=== PATIENT | male | born 1980 | race Hispanic/Latino ===

== ENCOUNTER 2018-11-29 17:35 | Emergency (ER) | payer OTHER, MEDICAID, SELFPAY ==
[2018-11-29 18:05] VITALS: BP 134/77; PULSE 95; RESP 14; TEMP 36.6; O2SAT 100; BMI 24.3
--- NOTE | 2018-11-29 19:11 | ED_ITS ---
HPI - Epistaxis General Chief complaint: Nasal Problem Stated complaint: bloody noses x7 days ?b/p med. Time Seen by Provider: 11/29/18 19:10 Source: patient Mode of arrival: ambulatory Limitations: no limitations History of Present Illness HPI Narrative: patient is a 38-year-old male who presents with left-sided epistaxis he says had multiple is every day for the last week. He is currently not bleeding. He is not on any aspirin or any anticoagulation medication. He previously had intracranial hemorrhage. His is worried he may be bleeding from his head. Denies any trauma or recent injury. He is taking blood pressure medication he says his blood pressure has been high last few days. But currently it is not high. MD complaint: epistaxis Location: left nostril Onset (ago): day(s) (7) Duration: now resolved Related Data Home Medications Medication Instructions Recorded Confirmed lisinopril 10 mg PO QDAY #0 01/02/13 Previous Rx's Medication Instructions Recorded amlodipine [Norvasc] 10 mg PO QDAY #30 tab 07/11/17 lisinopril 40 mg PO QDAY #30 tab 07/11/17 oseltamivir [Tamiflu] 75 mg PO BID 5 Days #0 cap 07/11/17 Allergies Allergy/AdvReac Type Severity Reaction Status Date / Time No Known Drug Allergies Allergy Verified 11/29/18 18:04 Review of Systems Review of Systems ROS Unobtainable: All systems reviewed & are unremarkable except as noted in HPI and below Constitutional Denies chills, Denies fever(s), Denies lethargy and Denies weakness Eyes Denies change in vision, Denies eye discharge, Denies irritation and Denies loss of vision ENT Ears, Nose, Mouth, and Throat: Reports as per HPI and Reports epistaxis Cardiovascular Denies chest pain, Denies irregular heart rhythm, Denies lightheadedness, Denies palpitations, Denies dyspnea, Denies dyspnea on exertion and Denies orthopnea Respiratory Denies cough, Denies dyspnea, Denies dyspnea on exertion and Denies wheezing Gastrointestinal Gastrointestinal: Denies abdominal pain, Denies change in bowel habits, Denies diarrhea, Denies nausea and Denies vomiting Genitourinary Denies hematuria, Denies flank pain, Denies urinary incontinence and Denies urinary urgency Musculoskeletal Denies back pain, Denies muscle weakness, Denies numbness and Denies tingling Integumentary/Breasts Denies pruritus, Denies erythema, Denies rash and Denies wounds Neurologic Denies loss of vision, Denies numbness, Denies tingling and Denies weakness Endocrine Denies palpitations Allergic/Immunologic Denies wheezing PFSH Social History Smoking Status: Former smoker Social History Smoking Status: Former smoker Comment: intracranial hemorrhage-- now resolved Exam Initial Vital Signs Initial Vital Signs: Vital Signs Temperature 97.8 F 11/29/18 18:05 Pulse Rate 95 H 11/29/18 18:05 Respiratory Rate 14 11/29/18 18:05 Blood Pressure 134/77 11/29/18 18:05 Pulse Oximetry 100 11/29/18 18:05 GENERAL: Well-appearing, well-nourished and in no acute distress. HEENT: Head atraumatic,EOMI, pupils reactive, NOSE: no source of bleeding identified no active bleeding now CARDIOVASCULAR: Regular rate and rhythm without murmurs, rubs or gallops. RESPIRATORY: Breath sounds equal bilaterally, no wheezes rales or rhonchi. ABDOMEN: Soft, nontender. Normoactive bowel sounds all 4 quadrants. No guarding or rebound. EXTREMITIES: Normal range of motion, no clubbing or edema. Neurovascularly intact NEUROLOGICAL: Alert and oriented x4.Normal gait and speech. SKIN: Warm, dry, no laceration, no petechiae, no rashes or lesions. Course Vital Signs - 8 hr 11/29/18 18:05 11/29/18 19:29 Temperature 97.8 F Pulse Rate 95 H 90 Respiratory Rate 14 16 Blood Pressure 134/77 133/87 Pulse Oximetry 100 99 Discharge Plan Departure Patient Disposition: Home Clinical Impression: Epistaxis Discharge Date/Time: 11/29/18 19:31 Interventions: ED Discharge Assessment Last Done: 11/29/18 19:29 Instructions: DI for Nosebleed Activity Restrictions/Additional Instructions: *You have been diagnosed with nose bleed *What to do: you need to keep blood pressure under control. Elevated blood pressure can make nose bleeds worse. You may need further intervention by ENT. If he should have a nose bleed clamp applied pressure tilt head forward. If persistent bleeding for more than 45 min use Afrin 1-2 squirts and then apply more pressure. If still bleeding after that return to ED. *Continue to take medications as directed *Follow up with your primary care provider in 2-3 days *Return to ER if you should have Persistent nosebleed any new, worsening or concerning symptoms Prescriptions: No Action lisinopril 10 MG tablet 10 mg PO QDAY Qty: 0 RF: 0 oseltamivir [Tamiflu] 75 MG capsule 75 mg PO BID 5 Days Qty: 0 RF: 0 lisinopril 40 MG tablet 40 mg PO QDAY Qty: 30 RF: 0 amlodipine [Norvasc] 10 MG tablet 10 mg PO QDAY Qty: 30 RF: 0 Referrals: [facility] [Outside] Jorden Young MD [Physician] -
[2018-11-29 19:29] VITALS: BP 133/87; PULSE 90; RESP 16; O2SAT 99
== END 2018-11-29 19:31 | disposition home or self-care (01) ==
PROVIDERS: Emergency Provider Emergency Medicine
DX: R04.0 Epistaxis (principal)
CPT/HCPCS: 99282

== ENCOUNTER → 2019-05-14 14:34 | Outpatient (CLI) | payer OTHER, MEDICAID, SELFPAY ==
[2019-05-14 15:13] LABS: Influenza A - CEPHEID Flu A NEGATIVE (NEGATIVE); Influenza B - CEPHEID Flu B NEGATIVE (NEGATIVE)
== END ==
PROVIDERS: Visit Provider Nurse Practitioner Family
DX: R68.89 Other general symptoms and signs (principal)
CPT/HCPCS: 87502

== ENCOUNTER 2019-05-22 16:52 | Emergency (ER) | payer OTHER, MEDICAID, SELFPAY ==
[2019-05-22 17:13] VITALS: BP 172/94; PULSE 98; RESP 18; TEMP 36.2; O2SAT 98; BMI 24.3
[2019-05-22 18:22] VITALS: BP 168/112; PULSE 100; RESP 16; O2SAT 98
[2019-05-22] MEDS: cephALEXin 250 MG CAPSULE 500 MG PO (19:10)
[2019-05-22] MEDS: TRIMETH/SULFA 160/800 (DS) TABLET 1 TAB PO (19:10)
[2019-05-22 19:30] VITALS: BP 163/93; PULSE 88; RESP 16; O2SAT 99
--- NOTE | 2019-05-22 21:12 | ED.SKABFB ---
HPI - Skin/Abscess/Foreign Bdy <KISHA Syed-BC - Last Filed: 05/22/19 21:17> General Chief complaint: Skin/Abscess/Foreign Body Stated complaint: thinks spider bite left shoulder Time Seen by Provider: 05/22/19 18:17 Source: patient and family Mode of arrival: Family Vehicle Limitations: no limitations History of Present Illness HPI narrative: The patient is a 38-year-old male nonsmoker with history of hypertension who presents with a chief complaint of a spider bite in his left shoulder. He states it started draining prior to arrival. He has not taken anything for it. He denies any history of diabetes or IV drug use. He denies any fevers nausea vomiting or diarrhea. He denies any previous history of abscesses. Related Data Home Medications Medication Instructions Recorded Confirmed lisinopril 10 mg PO QDAY #0 13 05/14/19 Previous Rx's Medication Instructions Recorded amlodipine [Norvasc] 10 mg PO QDAY #30 tab 07/11/17 lisinopril 40 mg PO QDAY #30 tab 07/11/17 oseltamivir [Tamiflu] 75 mg PO BID 5 Days #0 cap 07/11/17 cephalexin 500 mg PO QID #39 cap 05/22/19 sulfamethoxazole-trimethoprim 1 tab PO BID #14 tab 05/22/19 [Bactrim DS] Allergies Allergy/AdvReac Type Severity Reaction Status Date / Time No Known Drug Allergies Allergy Verified 05/22/19 17:22 Review of Systems <KEVAN SyedP- - Last Filed: 05/22/19 21:17> Review of Systems Narrative: GENERAL: Denies chills, fatigue, malaise, fever, sweats. HEENT: Denies sinus pain, ear pain, sore throat, difficulty swallowing, dizziness. RESPIRATORY: Denies dyspnea, cough, wheezing, hemoptysis, sputum. CARDIOVASCULAR: Denies chest pain, palpitations, orthopnea, edema, GASTROINTESTINAL: Denies nausea, vomiting, abdominal pain, diarrhea, constipation, melena. : Denies dysuria, frequency, incontinence, hematuria, urinary retention. MUSCULOSKELETAL: denies weakness, joint pain, or bony pain SKIN: See HPI NEUROLOGIC: Denies weakness, headache, numbness, change in speech, confusion, seizures, incoordination. PSYCHIATRIC: No concerning psychosocial issues. 12 point review of systems is negative except for those stated above Patient History <SUMANTH Syed - Last Filed: 05/22/19 21:17> Medical History Hemorrhagic stroke (Acute) Surgical History No pertinent past surgical history (Acute) Social History Smoking Status: Never smoker alcohol intake: current substance use type: marijuana Smoking Status: Never smoker alcohol intake frequency: 3 or more drinks per day Substance Use Type: marijuana Exam <SUMANTH Syed - Last Filed: 05/22/19 21:17> Narrative Exam Narrative: GENERAL: This is a well-nourished, well-developed patient, no acute distress HEAD: Atraumatic. Normocephalic. No temporal or scalp tenderness. EYES: Pupils equal round and reactive. Extraocular motions intact. No scleral icterus. No injection or drainage. ENT: Nose without bleeding, purulent drainage or septal hematoma. Throat without erythema, tonsillar hypertrophy or exudate. Uvula midline. Airway patent. NECK: Trachea midline. No JVD or lymphadenopathy. Supple, nontender, no meningeal signs. CARDIOVASCULAR: Regular rate and rhythm without murmurs, gallops, or rubs. RESPIRATORY: Clear to auscultation. Breath sounds equal bilaterally. No wheezes, rales, or rhonchi. GASTROINTESTINAL: Abdomen soft, non-tender, nondistended. No hepato-splenomegaly, or palpable masses. No guarding. EXTREMITIES: No clubbing, cyanosis, or edema. No joint tenderness, effusion, or edema noted. BACK: Nontender without deformity or crepitance. No flank tenderness. NEURO: AOx3. SKIN: 3 x 3 cm abscess noted a posterior left scapula. Actively draining purulent discharge. Wound culture taken. Overlying erythema isolated to abscess itself. Not extending. Initial Vital Signs Initial Vital Signs: Vital Signs Temperature 97.2 F L 05/22/19 17:13 Pulse Rate 98 H 05/22/19 17:13 Respiratory Rate 18 05/22/19 17:13 Blood Pressure 172/94 H 05/22/19 17:13 Pulse Oximetry 98 05/22/19 17:13 <Kailey Melendez DO - Last Filed: 05/23/19 06:08> Initial Vital Signs Initial Vital Signs: Vital Signs Temperature 97.2 F L 05/22/19 17:13 Pulse Rate 98 H 05/22/19 17:13 Respiratory Rate 18 05/22/19 17:13 Blood Pressure 172/94 H 05/22/19 17:13 Pulse Oximetry 98 05/22/19 17:13 Course <SUMANTH Syed - Last Filed: 05/22/19 21:17> Orders Ordered: Discontinued Medications Cephalexin HCl (Keflex) 500 mg PO NOW ONE Stop: 05/22/19 18:51 Last Admin: 05/22/19 19:10 Dose: 500 mg [facility] Trimethoprim/Sulfamethoxazole (Bactrim Ds) 1 tab PO NOW ONE Stop: 05/22/19 18:51 Last Admin: 05/22/19 19:10 Dose: 1 tab Documented by: ROLLY Vital Signs Vital signs: Vital Signs - 8 hr 05/22/19 17:13 05/22/19 18:22 05/22/19 19:30 Temperature 97.2 F L Pulse Rate 98 H 100 H 88 Respiratory Rate 18 16 16 Blood Pressure 172/94 H Blood Pressure [Left Arm] 168/112 H 163/93 H Pulse Oximetry 98 98 99 <Kailey Melendez DO - Last Filed: 05/23/19 06:08> Orders Ordered: Discontinued Medications Cephalexin HCl (Keflex) 500 mg PO NOW ONE Stop: 05/22/19 18:51 Last Admin: 05/22/19 19:10 Dose: 500 mg Documented by: [facility] Trimethoprim/Sulfamethoxazole (Bactrim Ds) 1 tab PO NOW ONE Stop: 05/22/19 18:51 Last Admin: 05/22/19 19:10 Dose: 1 tab Documented by: SILVERTO Vital Signs Vital signs: Vital Signs - 8 hr 05/22/19 17:13 05/22/19 18:22 05/22/19 19:30 Temperature 97.2 F L Pulse Rate 98 H 100 H 88 Respiratory Rate 18 16 16 Blood Pressure 172/94 H Blood Pressure [Left Arm] 168/112 H 163/93 H Pulse Oximetry 98 98 99 MDM - Skin/Abscess/Foreign Bdy <Kailey Mitchell, [employer] OPERATOR-BC - Last Filed: 05/22/19 21:17> [facility] Narrative Medical decision making narrative: The patient is a 38-year-old male who presents with a chief complaint of an abscess. He has no signs of systemic infection, afebrile etcetera. His abscess is actively draining upon arrival to the emergency department, I applied pressure to help facilitate further drainage. Wound culture was obtained in triage. She is cleansed with Hibiclens. Encouraged at length PCP follow-up given contact information [facility] resource agent. I did start him on Keflex and Bactrim. First doses tolerated in the emergency department. Patient and have no questions or concerns upon discharge and state understanding of return precautions as well as follow-up care. Discharge Plan Departure Patient Disposition: Home Clinical Impression: Abscess of skin or subcutaneous tissue Qualifiers: Site of cutaneous abscess: trunk Site of cutaneous abscess of trunk: back Qualified Code(s): L02.212 - Cutaneous abscess of back [any part, except buttock] Discharge Date/Time: 05/22/19 19:52 Instructions: DI for Skin Abscess Activity Restrictions/Additional Instructions: Thank you for trusting me with your care today I sent two antibiotics to [facility] in [place] Please take it with probiotic or yogurt Please monitor for signs of systemic illness such as fever, inability keep down fluids Please use warm moist compresses several times a day to help facilitate continued drainage We have a wound culture pending at this time. It will result in 2-3 days and if we have to change antibiotics we will call you Prescriptions: New cephalexin 500 mg capsule 500 mg PO QID Qty: 39 RF: 0 sulfamethoxazole-trimethoprim [Bactrim DS] 800-160 mg tablet 1 tab PO BID Qty: 14 RF: 0 No Action lisinopril 10 MG tablet 10 mg PO QDAY Qty: 0 RF: 0 oseltamivir [Tamiflu] 75 MG capsule 75 mg PO BID 5 Days Qty: 0 RF: 0 lisinopril 40 MG tablet 40 mg PO QDAY Qty: 30 RF: 0 amlodipine [Norvasc] 10 MG tablet 10 mg PO QDAY Qty: 30 RF: 0 Referrals: [facility] [Outside]
== END 2019-05-22 19:52 | disposition home or self-care (01) ==
PROVIDERS: Emergency Provider Nurse Practitioner Family
DX: L02.212 Cutaneous abscess of back [any part, except buttock and flank] (principal)
CPT/HCPCS: 87070; 87075; 87077; 87147; 87186; 87205; 99281; 99283

== ENCOUNTER → 2019-08-01 11:27 | Outpatient (CLI) | payer OTHER, MEDICAID, SELFPAY ==
[2019-08-01 12:07] LABS: Influenza A - CEPHEID Flu A NEGATIVE (NEGATIVE); Influenza B - CEPHEID Flu B NEGATIVE (NEGATIVE)
== END ==
PROVIDERS: PCP Family Medicine; Visit Provider Physician Assistant
DX: R50.9 Fever, unspecified (principal); R52 Pain, unspecified; R53.83 Other fatigue
CPT/HCPCS: 87502

== ENCOUNTER 2019-08-24 07:03 | Emergency (ER) | payer OTHER, MEDICAID, SELFPAY ==
[2019-08-24 07:47] VITALS: BP 157/91; PULSE 93; RESP 16; O2SAT 98
--- NOTE | 2019-08-24 08:12 | ED_ITS ---
HPI - Nausea/Vomiting/Diarrhea General Chief complaint: Nausea/Vomiting/Diarrhea Stated complaint: nausea,vomiting,diarrhea Time Seen by Provider: 08/24/19 07:03 Source: patient Mode of arrival: Ambulatory Limitations: no limitations History of Present Illness HPI Narrative: 39-year-old male nonsmoker with history of hypertension presents with another patient with similar symptoms which include nausea, vomiting and diarrhea for the past few days. He denies any fever, runny nose, sore throat, cough or shortness of breath. He denies recent travel or exposure to persons with known or suspected COVID-19. He denies any recent antibiotics, exposure to bad food but does have contact with ill persons. He is not dizzy nor weak or lightheaded. He developed crampy abdominal pain which pills until he has a bowel movement at which point symptoms improve MD complaint: nausea, vomiting and diarrhea Onset (ago): day(s) Description of Vomiting: food contents Description of Diarrhea: watery Associated Abdominal Pain: Yes Location of pain: diffuse Radiation: diffuse Severity: moderate Quality: cramping Pain Consistency: intermittent and now resolved Relieving factors: bowel movement Exacerbating factors: none Context: sick contacts Associated symptoms: nausea/vomiting Related Data Home Medications Medication Instructions Recorded Confirmed lisinopril 10 mg tablet 10 mg PO BID #0 tab 08/01/19 08/01/19 Previous Rx's Medication Instructions Recorded amlodipine 5 mg tablet 5 mg PO BID #180 tab 05/31/19 hyoscyamine sulfate 0.125 mg PO BID-QID PRN #20 tab 08/24/19 ondansetron 4 mg PO TID-QID PRN #10 tab 08/24/19 Allergies Allergy/AdvReac Type Severity Reaction Status Date / Time No Known Drug Allergies Allergy Verified 08/01/19 11:20 Review of Systems Constitutional Constitutional: Denies chills, Denies fatigue, Denies fever(s), Denies frequent falls, Denies lethargy and Denies weakness Eyes Eyes: Denies change in vision, Denies eye discharge, Denies irritation and Denies loss of vision ENT Ears, Nose, Mouth, and Throat: Denies change in voice, Denies dizziness, Denies neck pain, Denies sore throat and Denies throat swelling Cardiovascular Cardiovascular: Denies chest pain, Denies irregular heart rhythm, Denies lightheadedness, Denies palpitations, Denies dyspnea, Denies dyspnea on exertion and Denies orthopnea Respiratory Respiratory: Denies cough, Denies dyspnea, Denies dyspnea on exertion and Denies wheezing Gastrointestinal Gastrointestinal: Denies abdominal pain, Denies change in bowel habits, Denies diarrhea, Reports nausea and Reports vomiting Genitourinary Genitourinary: Denies hematuria, Denies flank pain, Denies urinary incontinence and Denies urinary urgency Musculoskeletal Musculoskeletal: Denies back pain, Denies muscle weakness, Denies neck pain, Denies numbness and Denies tingling Integumentary/Breasts Skin/Breast: Denies pruritus, Denies erythema, Denies rash and Denies wounds Neurologic Neurologic: Denies behavioral changes, Denies confusion, Denies dizziness, Denies frequent falls, Denies loss of vision, Denies numbness, Denies tingling and Denies weakness Psychiatric Psychiatric: Denies anxiety, Denies behavioral changes, Denies confusion, Denies depression, Denies homicidal ideation and Denies suicidal ideation Endocrine Endocrine: Denies fatigue, Denies flushing and Denies palpitations Hematologic/Lymphatic Hematologic/Lymphatic: Denies easy bruising Allergic/Immunologic Allergic/Immunologic: Denies urticaria, Denies throat swelling and Denies wheezing Patient History Medical History Eczema (Chronic) Hemorrhagic stroke (Acute ~2012) Hypertension (Chronic) Infertility (Acute) Migraines (Chronic) Viral syndrome (Acute) Surgical History History of surgery (Resolved ~2012) No pertinent past surgical history (Acute) Family History Father Hypertension Mother Hypertension Brother Hypertension Sister Hypertension Grandfather Hypertension Social History Smoking Status: Never smoker second hand exposure: Yes alcohol intake: current (40oz biweekly. ) substance use type: marijuana Smoking Status: Never smoker alcohol intake frequency: 3 or more drinks per day Substance Use Type: marijuana Exam Narrative Exam Narrative: GENERAL: [39] year old patient appears stated age. Well- nourished, well-developed patient, in mild distress. HEAD: Atraumatic. Normocephalic. EYES: Pupils equal round and reactive. Extraocular motions intact. No scleral icterus. No injection or drainage. ENT: Moist mucous membranes Nose without bleeding, purulent drainage. Throat without erythema, tonsillar hypertrophy or exudate. Airway patent. NECK: Trachea midline. Non tender CARDIOVASCULAR: Regular rate and rhythm without murmurs, gallops, or rubs. RESPIRATORY: Clear to auscultation. Breath sounds equal bilaterally. No wheezes, rales, or rhonchi. GASTROINTESTINAL: Abdomen soft, non-tender, nondistended. EXTREMITIES: No edema or joint tenderness. BACK: Nontender without deformity or crepitance. No flank tenderness. NEURO: AOx3. SKIN: No rash or erythema of visible areas, good skin turgor Initial Vital Signs Initial Vital Signs: Vital Signs Pulse Rate 93 H 08/24/19 07:47 Respiratory Rate 16 08/24/19 07:47 Blood Pressure 157/91 H 08/24/19 07:47 Pulse Oximetry 98 08/24/19 07:47 Course Vital Signs Vital signs: Vital Signs - 8 hr 08/24/19 07:47 Pulse Rate 93 H Respiratory Rate 16 Blood Pressure 157/91 H Pulse Oximetry 98 MDM - Nausea/Vomiting/Diarrhea Lab Data Labs: Urine Dip Bedside Urine Glucose 100 mg/dl Bedside Urine Bilirubin + 1 Bedside Urine Ketone - Negative Urine Specific [place] 1.020 Bedside Urine Occult Blood - Negative Bedside Urine pH 6.0 Bedside Urine Protein + 30 Bedside Urine Urobilinogen +/- 1mg Bedside Urine Nitrite - Negative Bedside Urine Leukocytes - Negative Esterase MDM Narrative Medical decision making narrative: Patient presents with nausea, vomiting and diarrhea. He has a very reassuring physical exam and vital signs. Urine shows appropriate specific gravity and no evidence of ketones. He is not dizzy nor weak or lightheaded. We discussed the utility of IV for labs and blood draw but sure the opinion that is unlikely to change the course. He has had return precautions given and questions answered to his apparent satisfaction. Discharge Plan Departure Patient Disposition: Home Clinical Impression: Vomiting and diarrhea Discharge Date/Time: 08/24/19 08:31 Instructions: Diarrhea, DI for Vomiting -- Adult Activity Restrictions/Additional Instructions: 1. Drink plenty of fluids with frequent small sips. 2. For the next 24 hours a clear liquid diet is advised. After that please employ a brat diet which would include bananas, rice, apples, toast. 3. Please take medications as directed. Sent to [facility] in [place] 4. Please follow-up with your doctor in the next 1-2 days. Call the office for an appointment. 5. Please return to the emergency Department for any worsening or persistent symptoms, such as increasing pain or fever. Prescriptions: New hyoscyamine sulfate 0.125 mg tablet 0.125 mg PO BID-QID PRN (Reason: dyspepsia) Qty: 20 RF: 0 ondansetron 4 mg tablet,disintegrating 4 mg PO TID-QID PRN (Reason: nausea and vomiting) Qty: 10 RF: 0 No Action lisinopril 10 mg tablet 10 mg PO BID Qty: 0 RF: 0 amlodipine 5 mg tablet 5 mg PO BID Qty: 180 RF: 3 Referrals: [facility] [Outside] Stand Alone Forms: Work Release Note
== END 2019-08-24 08:31 | disposition home or self-care (01) ==
PROVIDERS: Emergency Provider Emergency Medicine
DX: R11.2 Nausea with vomiting, unspecified (principal); R19.7 Diarrhea, unspecified; I10 Essential (primary) hypertension
CPT/HCPCS: 81003; 99281; 99282

== ENCOUNTER 2020-02-12 08:16 | Observation (INO) | payer OTHER, MEDICAID, SELFPAY ==
[2020-02-12] VITALS (10 sets, daily range): BP systolic 129–186; BP diastolic 77–89; PULSE 52–81; RESP 16–18; TEMP 36.3–37.1; O2SAT 98–100; BMI 27.3
--- NOTE | 2020-02-12 08:37 | DI.CT.S_ITS ---
PROCEDURE: CT CHEST ABD PEL W CON INDICATIONS: Trauma/injury/pain right side TECHNIQUE: After the administration of intravenous contrast, 5 mm thick sections acquired from the lung apices to the symphysis. 2.5 mm thick coronal and sagittal reformats were acquired. Additional 7 mm thick coronal maximum intensity projection (MIP) reformats acquired through the lungs. Optional 10-minute delayed imaging may be performed from the kidneys to the bladder. For radiation dose reduction, the following was used: automated exposure control, adjustment of mA and/or kV according to patient size. COMPARISON: [facility], CT, CT UE RT WO CON, 02/12/2020, 9:18. FINDINGS: Image quality: Excellent. CHEST: Lungs: No pulmonary contusions or lacerations. No acute airspace opacities. No pneumothorax or hemothorax. Central and peripheral airways appear patent and normal in caliber. Mediastinum: No mediastinal hematomas. Heart size is normal. No pericardial effusion. Thoracic aorta and pulmonary arteries demonstrate normal size and enhancement. No mediastinal or hilar adenopathy. Esophagus is normal in caliber. No hiatal hernia. Chest wall: A mildly displaced right coracoid fracture is seen. No rib fractures. No subcutaneous emphysema. No axillary or supraclavicular adenopathy. Thyroid gland demonstrates no significant abnormality. ABDOMEN: Solid organs: Liver is normal in size and enhancement, without lacerations. Gallbladder demonstrates no significant abnormality. Biliary system is non-dilated. Pancreas enhances normally, without transection. Spleen is normal in size and enhancement, without lacerations. Incidental note is made of an accessory splenule along the hilum of the primary spleen. No adrenal hematomas. Both kidneys enhance normally, without hydronephrosis or lacerations. Peritoneum and bowel: No free fluid or air. Unenhanced bowel loops demonstrate normal wall thickness and caliber. Colonic diverticulosis is seen, without findings of active diverticulitis. A normal appendix is incidentally noted. Nodes and vessels: No retroperitoneal or mesenteric adenopathy. Aorta and inferior vena cava are normal in size and enhancement. Miscellaneous: No ventral hernias. PELVIS: Genitourinary: Moderate circumferential bladder wall thickening is seen. Miscellaneous: No inguinal hernias or adenopathy. Bones: Pelvic ring and hip joints appear intact. No vertebral compression fractures. Mild levoconvex scoliotic curvature is noted. IMPRESSION: There is a mildly displaced right coracoid fracture seen. No additional significant posttraumatic abnormality is seen on these images. Moderate bladder wall thickening is seen. Please correlate with bladder outlet obstruction versus cystitis. Incidental note is made of: Levoconvex scoliotic curvature Accessory splenule Normal appendix Diverticulosis, without active diverticulitis Dictated by: Yovani Wiggins M.D. on 02/12/2020 at 8:49 Approved by: Yovani Wiggins M.D. on 02/12/2020 at 8:53
--- NOTE | 2020-02-12 08:38 | DI.CT.S_ITS ---
PROCEDURE: CT UE RT WO CON INDICATIONS: pain/injury TECHNIQUE: Noncontrast 3 mm axial sections acquired of the right humerus , with coronal and sagittal reformats. COMPARISON: [facility], CT, CT CHEST ABD PEL W CON, 02/12/2020, 9:23. FINDINGS: Image quality: Excellent. Bones: There is a mildly displaced fracture seen of the right coracoid, as on series 2 image 67 and on series 5, image 128. There is a mildly displaced comminuted fracture of the mid shaft of the right humerus. No clavicle fracture is seen. No displaced rib fractures are seen on this study. No glenohumeral dislocation. Soft tissues: Associated soft tissue swelling is seen. No pneumothorax is seen. IMPRESSION: Mildly displaced, comminuted fracture of the mid shaft of the humerus. There is a mildly displaced coracoid fracture also seen. No glenohumeral dislocation is seen. Dictated by: Yovani Wiggins M.D. on 02/12/2020 at 8:44 Approved by: Yovani Wiggins M.D. on 02/12/2020 at 8:48
--- NOTE | 2020-02-12 08:38 | DI.RAD.S_ITS ---
PROCEDURE: XR HUMERUS RT 2V INDICATIONS: trauma/pain TECHNIQUE: 2 views of the humerus were acquired. COMPARISON: [facility], CT, CT CHEST ABD PEL W CON, 02/12/2020, 9:23. [facility], CT, CT UE RT WO CON, 02/12/2020, 9:18. FINDINGS: Bones: There is a mildly displaced and mildly angulated fracture of the midshaft of the right humerus, with comminution. Soft tissues: No suspicious soft tissue calcifications. IMPRESSION: Comminuted fracture of the midshaft of the right humerus. Dictated by: Yovani Wiggins M.D. on 02/12/2020 at 8:54 Approved by: Yovani Wiggins M.D. on 02/12/2020 at 8:55
--- NOTE | 2020-02-12 08:58 | ED_ITS ---
HPI - Recheck/Abnormal Lab/Rx General Chief Complaint: Recheck/Abnormal Lab/Rx Stated Complaint: bruising/cast rt arm Time Seen by Provider: 02/12/20 08:37 Source: patient and family Mode of arrival: Ambulatory Limitations: no limitations History of Present Illness HPI narrative: Patient here with family. Here for right arm pain and chest pain on the right side. Seen Friday this week at outside hospital for broken arm and bruised ribs. Patient states that tree fell on his arm and chest. Seen at [facility] [place]. Tried calling the orthopedic office he was given but no answer this week. Increase pain. Increased swelling to the arm. And bruising. However no no no numbness tingling or weakness. Records faxed to us. Patient placed in Velcro splint for support and sling. Denies any fever chills. No trouble breathing. Denies any head injury or neck injury or pain from accident. Related Data Previous Rx's Medication Instructions Recorded lisinopril 10 mg tablet 10 mg PO BID #180 tab 11/17/19 amlodipine 10 mg tablet 5 mg PO BID #90 tab 12/01/19 Allergies Allergy/AdvReac Type Severity Reaction Status Date / Time No Known Drug Allergies Allergy Verified 11/17/19 11:27 Review of Systems Review of Systems Narrative: GENERAL: Denies chills, fatigue, malaise, fever, sweats. HEENT: Denies sinus pain, ear pain, sore throat, difficulty swallowing, dizziness. RESPIRATORY: Denies dyspnea, cough, wheezing, hemoptysis, sputum. CARDIOVASCULAR: Denies chest pain, palpitations, orthopnea, edema, GASTROINTESTINAL: Denies nausea, vomiting, abdominal pain, diarrhea, constipation, melena. : Denies dysuria, frequency, incontinence, hematuria, urinary retention. MUSCULOSKELETAL: Complains of bony and muscle pain. SKIN: Denies rash, skin lesions, or other NEUROLOGIC: Denies weakness, headache, numbness, change in speech, confusion, seizures, incoordination. PSYCHIATRIC: No concerning psychosocial issues. ROS Unobtainable: All systems reviewed & are unremarkable except as noted in HPI and below Patient History Medical History Eczema (Chronic) Hemorrhagic stroke (Acute ~2012) Hypertension (Chronic) Infertility (Acute) Migraines (Chronic) Viral syndrome (Acute) Surgical History History of surgery (Resolved ~2012) No pertinent past surgical history (Acute) Family History Father Hypertension Mother Hypertension Brother Hypertension Sister Hypertension Grandfather Hypertension Social History household members: spouse Smoking Status: Never smoker second hand exposure: Yes alcohol intake: current substance use type: marijuana Smoking Status: Never smoker alcohol intake frequency: 3 or more drinks per day Substance Use Type: marijuana Exam Narrative Exam Narrative: GENERAL: patient appears stated age. Well-nourished, well- developed patient, in no distress, not toxic HEAD: Atraumatic. Normocephalic. EYES: Pupils equal round and reactive. Extraocular motions intact. No scleral icterus. No injection or drainage. ENT: Nose without bleeding, purulent drainage. Throat without erythema, tonsillar hypertrophy or exudate. Airway patent. NECK: Trachea midline. Non tender CARDIOVASCULAR: Regular rate and rhythm without murmurs, gallops, or rubs. Chest wall there is right anterior lower rib bruising. Diffuse tenderness of the right-sided rib cage wall posterior as well as anterior. No crepitus. No flail. RESPIRATORY: Clear to auscultation. Breath sounds equal bilaterally. No wheezes, rales, or rhonchi. Speaks full sentences GASTROINTESTINAL: Abdomen soft, non-tender, nondistended. EXTREMITIES: Examination right upper extremity, brace and sleeves removed, right upper extremity is warm soft, pink. There is some ecchymosis distal to mid humerus. Nontender elbow. Nontender shoulder wrist and hand. Strong ammonium nitrate crystallizer in radial pulse with brisk cap refills. Light touch intact to thumb and fingers. Upper arm and forearm are soft. No induration. No pain out of proportion to exam. Again, not out of proportion to exam. At this time no signs of compartment syndrome. There is mid humeral tenderness with crepitus. Instability with movement of this area. No tenting of the skin BACK: Nontender without deformity or crepitance. No flank tenderness. NEURO: AOx4. SKIN: No rash or erythema of visible areas PSYCH: Not anxious, is cooperative Initial Vital Signs Initial Vital Signs: Vital Signs Temperature 98.7 F 02/12/20 08:31 Pulse Rate 71 02/12/20 08:31 Respiratory Rate 18 02/12/20 08:31 Blood Pressure 136/77 02/12/20 08:31 Pulse Oximetry 98 02/12/20 08:31 Course Course Course Narrative: Pain meds at home not controlling pain. Significant break in the right arm. Decision to Admit Date: 02/12/20 Decision to Admit time: 10:57 Orders Ordered: ED Orders 02/12/20 08:37 CT chest abd pel w con Stat 02/12/20 08:38 CT UE RT wo con Stat XR humerus RT 2V Stat 02/12/20 09:06 Complete Blood Count AUTO DIFF Stat Comprehensive Metabolic Panel Stat 02/12/20 09:17 COVID19 -ED/INPAT/OR/L&D Stat 02/12/20 10:58 Consult to Orthopedic Surgery Stat Acetaminophen (Tylenol) 650 mg PO Q6HR PRN PRN Reason: Fever/Mild Pain (1-3) Last Admin: 02/12/20 15:52 Dose: 650 mg Documented by: CHRIS Al Hydrox/Mg Hydrox/Simethicone (Maalox Plus) 30 ml PO Q6HR PRN PRN Reason: Dyspepsia Bisacodyl (Dulcolax) 10 mg GA DAILY PRN PRN Reason: Constipation Calcium Carbonate (Tums) 1,000 mg PO Q4HR PRN PRN Reason: Dyspepsia Docusate Sodium (Colace) 100 mg PO BID JOSEPH Enoxaparin Sodium (Lovenox) 40 mg SUBCUT DAILY JOSEPH Magnesium Hydroxide (Milk Of Magnesia) 30 ml PO DAILY PRN PRN Reason: Constipation Naloxone HCl (Narcan) 0.2 mg IV Q2MIN PRN PRN Reason: Opiate Reversal Ondansetron HCl (Zofran) 4 mg IV Q8HR PRN PRN Reason: Nausea And Vomiting Oxycodone HCl (Percolone) 5 mg PO Q6HR PRN PRN Reason: Pain, Moderate (4-6) Last Admin: 02/12/20 13:30 Dose: 5 mg Documented by: PARKER Polyethylene Glycol (Miralax) 17 gm PO DAILY JOSEPH Promethazine HCl (Phenadoz) 12.5 mg GA Q6HR PRN PRN Reason: Nausea And Vomiting Discontinued Medications Sodium Chloride (Normal Saline 0.9%) 500 mls @ 1,000 mls/hr IV BOLUS ONE Stop: 02/12/20 09:41 Last Admin: 02/12/20 13:30 Dose: Not Given Documented by: PARKER Morphine Sulfate (Morphine) 4 mg IV NOW ONE Stop: 02/12/20 08:38 Last Admin: 02/12/20 09:11 Dose: 4 mg Documented by: RUBY Morphine Sulfate (Morphine) 4 mg IV NOW ONE Stop: 02/12/20 10:58 Last Admin: 02/12/20 15:09 Dose: Not Given Documented by: PARKER Ondansetron HCl (Zofran) 4 mg IV NOW ONE Stop: 02/12/20 08:38 Last Admin: 02/12/20 09:11 Dose: 4 mg Documented by: RUBY Reevaluation(s) Reevaluation #1: Pain controlled at this time with morphine, no numbness or tingling to the hand or arm. Time: 10:11 Consultations Consultation #1: Spoke with primary care office, Dr. Jimenez, patient to be admitted to hospitalist Time: 08:31 Consultation #2: Spoke with Orthopedics Dr Hare, would be appropriate for observation for pain control and neurovascular checks. He will see patient in the morning Time: 10:58 Consultation #3: Spoke with hospitalist Dr. Paul, will admit [facility] observation Time: 11:29 Vital Signs Vital signs: Vital Signs - 8 hr 02/12/20 11:28 Pulse Rate 81 Pulse Oximetry 100 MDM - Recheck/Abnormal Lab/Rx Differential Diagnosis Differential diagnosis: Likely other (Intractable pain./rib fractures/chest contusion) Medical Records Attestation: I reviewed the patient's medical records. Lab Data Attestation: I reviewed the patient's lab results. Result diagrams: 02/12/20 09:06 02/12/20 09:06 Labs: Lab Results 02/12/20 02/12/20 02/12/20 Range/Units 09:06 09:06 09:17 WBC 3.5 L (4.5-11.0) X10^3/uL RBC 4.13 L (4.5-5.9) X10^6/uL Hgb 12.7 L (13.5-17.5) g/dL Hct 38.1 L (41-53) % MCV 92.2 (80-100) fL MCH 30.7 (26-34) PG MCHC 33.3 (30-36) % RDW 13.3 (11.6-14.8) % Plt Count 285 (150-400) X10^3/uL Neut % (Auto) 46.9 L (50-75) % Lymph % (Auto) 31.7 (25-40) % Edmunds % (Auto) 15.4 H (3-14) % Eos % (Auto) 5.3 H (2-4) % Baso % (Auto) 0.7 (0-2) % Neut # (Auto) 1700 (6438-4529) /uL Lymph # (Auto) 1100 (3269-5048) /uL Edmunds # (Auto) 500 (0-900) /uL Eos # (Auto) 200 (0-450) /uL Baso # (Auto) 0 (0-100) /uL Sodium 139 (137-145) mmol/L Potassium 4.1 (3.4-5.1) mmol/L Chloride 104 (98-107) mmol/L Carbon Dioxide 30 (22-32) mmol/L BUN 21 H (9-20) mg/dL Creatinine 0.85 (0.66-1.25) mg/dL Estimated GFR > 60.0 (>60) mL/min BUN/Creatinine Ratio 24.7 H (6-22) Glucose 113 H (70-100) mg/dL Calcium 9.0 (8.4-10.2) mg/dL Total Bilirubin 0.7 (0.2-1.3) mg/dL AST 65 H (17-59) IU/L ALT 67 H (<50) IU/L Alkaline Phosphatase 60 (38-126) U/L Total Protein 7.3 (6.3-8.2) g/dL Albumin 4.2 (3.5-5.0) g/dL Globulin 3.1 (1.7-4.1) g/dL Albumin/Globulin Ratio 1.4 (1.0-2.8) COVID-19 PCR Negative (Negative) Imaging Data CT scan chest abdomen pelvis: Radiologist's Impression: [address] [address] [address] Scan Report Signed Patient: Fred Lezama R#: [id number] : 1980Acct:[id number] Age/Sex: 39 / MDate of Service: 02/12/20 Loc: ED Accession Number: [id number] Procedure: CT chest abd pel w con Ordering Provider: Danilo Jo MD PROCEDURE: CT CHEST ABD PEL W CON INDICATIONS: Trauma/injury/pain right side TECHNIQUE: After the administration of intravenous contrast, 5 mm thick sections acquired from the lung apices to the symphysis. 2.5 mm thick coronal and sagittal reformats were acquired. Additional 7 mm thick coronal maximum intensity projection (MIP) reformats acquired through the lungs. Optional 10-minute delayed imaging may be performed from the kidneys to the bladder. For radiation dose reduction, the following was used: automated exposure control, adjustment of mA and/or kV according to patient size. COMPARISON: [facility], CT, CT UE RT WO CON, 02/12/2020, 9:18. FINDINGS: Image quality: Excellent. CHEST: Lungs: No pulmonary contusions or lacerations. No acute airspace opacities. No pneumothorax or hemothorax. Central and peripheral airways appear patent and normal in caliber. Mediastinum: No mediastinal hematomas. Heart size is normal. No pericardial effusion. Thoracic aorta and pulmonary arteries demonstrate normal size and enhancement. No mediastinal or hilar adenopathy. Esophagus is normal in caliber. No hiatal hernia. Chest wall: A mildly displaced right coracoid fracture is seen. No rib fractures. No subcutaneous emphysema. No axillary or supraclavicular adenopathy. Thyroid gland demonstrates no significant abnormality. ABDOMEN: Solid organs: Liver is normal in size and enhancement, without lacerations. Gallbladder demonstrates no significant abnormality. Biliary system is non-dilated. Johns creas enhances normally, without transection. Spleen is normal in size and enhancement, without lacerations. Incidental note is made of an accessory splenule along the hilum of the primary spleen. No adrenal hematomas. Both kidneys enhance normally, without hydronephrosis or lacerations. Peritoneum and bowel: No free fluid or air. Unenhanced bowel loops demonstrate normal wall thickness and caliber. Colonic diverticulosis is seen, without findings of active diverticulitis. A normal appendix is incidentally noted. Nodes and vessels: No retroperitoneal or mesenteric adenopathy. Aorta and inferior vena cava are normal in size and enhancement. Miscellaneous: No ventral hernias. PELVIS: Genitourinary: Moderate circumferential bladder wall thickening is seen. Miscellaneous: No inguinal hernias or adenopathy. Bones: Pelvic ring and hip joints appear intact. No vertebral compression fractures. Mild levoconvex scoliotic curvature is noted. IMPRESSION: There is a mildly displaced right coracoid fracture seen. No additional significant posttraumatic abnormality is seen on these images. Moderate bladder wall thickening is seen. Please correlate with bladder outlet obstruction versus cystitis. Incidental note is made of: Levoconvex scoliotic curvature Accessory splenule Normal appendix Diverticulosis, without active diverticulitis Dictated by: Yovani Wiggins M.D. on 02/12/2020 at 8:49 Approved by: Yovani Wiggins M.D. on 02/12/2020 at 8:53 CT scan right upper extremity: Radiologist's Impression: [place] [address] CT Scan Report Signed Patient: Fred Lezama R#: [id number] : 1980Acct:[id number] Age/Sex: 39 / MDate of Service: 02/12/20 Loc: ED Accession Number: [id number] Procedure: CT UE RT wo con Ordering Provider: Danilo Jo MD PROCEDURE: CT UE RT WO CON INDICATIONS: pain/injury TECHNIQUE: Noncontrast 3 mm axial sections acquired of the right humerus , with coronal and sagittal reformats. COMPARISON: [facility], CT, CT CHEST ABD PEL W CON, 02/12/2020, 9:23. FINDINGS: Image quality: Excellent. Bones: There is a mildly displaced fracture seen of the right coracoid, as on series 2 image 67 and on series 5, image 128. There is a mildly displaced comminuted fracture of the mid shaft of the right humerus. No clavicle fracture is seen. No displaced rib fractures are seen on this study. No glenohumeral dislocation. Soft tissues: Associated soft tissue swelling is seen. No pneumothorax is seen. IMPRESSION: Mildly displaced, comminuted fracture of the mid shaft of the humerus. There is a mildly displaced coracoid fracture also seen. No glenohumeral dislocation is seen. Dictated by: Yovani Wiggins M.D. on 02/12/2020 at 8:44 Approved by: Yovani Wiggins M.D. on 02/12/2020 at 8:48 X-ray right humerus: Radiologist's Impression: [address] [address] XRay Report Signed Patient: Fred Lezama R#: [id number] : 1980Acct:[id number] Age/Sex: 39 / MDate of Service: 02/12/20 Loc: ED Accession Number: [id number] Procedure: XR humerus RT 2V Ordering Provider: Danilo Jo MD PROCEDURE: XR HUMERUS RT 2V INDICATIONS: trauma/pain TECHNIQUE: 2 views of the humerus were acquired. COMPARISON: [facility], CT, CT CHEST ABD PEL W CON, 02/12/2020, 9:23. [facility], CT, CT UE RT WO CON, 02/12/2020, 9:18. FINDINGS: Bones: There is a mildly displaced and mildly angulated fracture of the midshaft of the right humerus, with comminution. Soft tissues: No suspicious soft tissue calcifications. IMPRESSION: Comminuted fracture of the midshaft of the right humerus. Dictated by: Yovani Wiggins M.D. on 02/12/2020 at 8:54 Approved by: Yovani Wiggins M.D. on 02/12/2020 at 8:55 MDM Narrative Medical decision making narrative: Admit for pain control as well as neurovascular checks. At this time no signs of compartment syndrome. Orthopedic surgeon that was on-call at [facility] is dr ordaz. However, patient does not want to follow-up at their facility. Prefers orthopedic locally here Discharge Plan Departure Patient Disposition: Admitted as Observation Clinical Impression: Closed fracture of humerus Qualifiers: Encounter type: initial encounter Humerus Location: shaft Fracture morphology: comminuted Fracture alignment: displaced Laterality: right Qualified Code(s): S42.351A - Displaced comminuted fracture of shaft of humerus, right arm, initial encounter for closed fracture Contusion of chest Qualifiers: Encounter type: initial encounter Laterality: right Qualified Code(s): S20.211A - Contusion of right front wall of thorax, initial encounter Closed coracoid process fracture Qualifiers: Encounter type: initial encounter Fracture alignment: displaced Laterality: right Qualified Code(s): S42.131A - Displaced fracture of coracoid process, right shoulder, initial encounter for closed fracture Discharge Date/Time: 02/12/20 12:10 Referrals: Steve Leiva DO [Primary Care Provider] - Admit Date/Time: 02/12/20 11:29 Admit Provider: Jenny Paul
[2020-02-12] MEDS: MORPHINE 4 MG/ML INJ IV (09:11)
[2020-02-12] MEDS: ONDANSETRON 4 MG/2 ML INJ IV (09:11)
[2020-02-12 09:14] LABS: Add Manual Diff / Slide Review NO; Basophils Absolute Auto 0 /uL (0-100); Basophils Percent Auto 0.7 % (0-2); Eosinophils Absolute Auto 200 /uL (0-450); Eosinophils Percent Auto 5.3 % (2-4); Hematocrit 38.1 % (41-53); Hemoglobin 12.7 g/dL (13.5-17.5); Lymphocytes Absolute Auto 1100 /uL (1100-4500); Lymphocytes Percent Auto 31.7 % (25-40); Mean Corpuscular HGB Conc 33.3 % (30-36); Mean Corpuscular Hemoglobin 30.7 PG (26-34); Mean Corpuscular Volume 92.2 fL (80-100); Monocytes Absolute Auto 500 /uL (0-900); Monocytes Percent Auto 15.4 % (3-14); Neutrophils Absolute Auto 1700 /uL (1500-7000); Neutrophils Percent Auto 46.9 % (50-75); Platelet Count 285 X10^3/uL (150-400); Red Blood Cell Count 4.13 X10^6/uL (4.5-5.9); Red Cell Distribution Width 13.3 % (11.6-14.8); White Blood Cell Count 3.5 X10^3/uL (4.5-11.0)
[2020-02-12 09:49] LABS: Alanine Aminotransferase 67 IU/L (<50); Albumin 4.2 g/dL (3.5-5.0); Albumin Globulin Ratio 1.4 (1.0-2.8); Alkaline Phosphatase 60 U/L (38-126); Aspartate Aminotransferase 65 IU/L (17-59); BUN Creatinine Ratio 24.7 (6-22); Bilirubin Total 0.7 mg/dL (0.2-1.3); Blood Urea Nitrogen 21 mg/dL (9-20); Carbon Dioxide 30 mmol/L (22-32); Chloride 104 mmol/L (98-107); Estimated Glomerular Filt Rate > 60.0 mL/min (>60); Globulin 3.1 g/dL (1.7-4.1); Glucose 113 mg/dL (70-100); HEMOLYSIS < 15 (0-50); Potassium 4.1 mmol/L (3.4-5.1); Sodium 139 mmol/L (137-145); Total Protein 7.3 g/dL (6.3-8.2)
[2020-02-12 09:51] LABS: COVID19 -Nasal RAPID Negative (Negative)
[2020-02-12] MEDS: OXYCODONE IR 5 MG TABLET PO ×2 (13:30→19:16)
--- NOTE | 2020-02-12 14:28 | OT.IP.TRT ---
Occupational Therapy Treatment Note M3 OT- IP Subjective and Pain Start: 02/12/20 14:26 Freq: Status: Active Protocol: Document 02/12/20 14:26 CGR (Rec: 02/12/20 14:28 CGR [id number]) OT- Subjective Occupational Therapy Visit Type Type Administrative Note Notes Chart reviewed, discussed with MD and nursing. Per MD pt is nonsurgical at this time. Nursing indicates that ortho has been ordered but pt has not yet been seen by othro. Will await ortho recommendations per therapy protocol.
--- NOTE | 2020-02-12 14:45 | PC.NURSE ---
Admission From ER, able to ambulate to bed from [facility]. Reports pain to RUE. Skin check completed. Bruising and swelling to RUE, [employer]+ [employer] brisk. PP+ Elevated RUE to pillows. Indep in room. Oxycodone given for pain rating 6/10. Heart healthy diet given, Pt updated on nonsurgeical POC. Significant other updated and will return later to update. Call light in reach.
--- NOTE | 2020-02-12 15:00 | P.HP_ITS ---
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 The patient reports that 5 days ago on 01/07/2020 he was helping his friend cut down a tree when a tree branch fell on him resulting in a right humeral fracture. The patient was seen at [facility] and it was determined to that his right humeral fracture is nonsurgical and he was placed in a sling and discharged with hydrocodone. The patient was instructed to follow-up with Orthopedic surgery and attempted to contact them but had no answer. He continued to have minimally controlledright arm pa in and chest wall/rib pain due from trauma with increased swelling of right arm prompting him to go to the ED. He denies loss of sensation, numbness, paresthesias or weakness. He has no other complaints and denies headache, chest pain, shortness of breath, cough, abdominal pain, nausea, vomiting, fever, chills, dysuria, diarrhea or constipation. His appetite is unchanged. He does not feel the sling fits him well and inquires if there is another type of sling that could better immobilize his right arm. ED course: Repeat imaging including right humeral x-ray and CT without contrast demonstrated mildly displaced, comminuted fracture of the mid shaft of the right humerus and a mildly displaced coracoid fracture also seen. No evidence of glenohumeral dislocation. Orthopedic surgery, Dr. Hare, was contacted who recommended observation for pain control and evaluation from Orthopedic surgery and physical therapy. Patient History Medical History (Updated 02/12/20 @ 10:11 by Danilo Jo MD) Eczema (Chronic) Hemorrhagic stroke (Acute ~2013) Hypertension (Chronic) Infertility (Acute) Migraines (Chronic) Viral syndrome (Acute) Surgical History (Updated 02/12/20 @ 23:25 by Jenny Paul DO) History of jareth hole surgery (Acute) Family & Social History Family History Father Hypertension Mother Hypertension Brother Hypertension Sister Hypertension Grandfather Hypertension Social History: household members spouse Prior Living Arrangements House Safety & Behavioral: Feels Safe in Current Yes Environment Been Physically Hurt or No Threatened By a Person Suicidal Ideation Description None Suicide Plan Description No Plan Tobacco & Substance use: Smoking Status Never smoker alcohol intake current alcohol intake frequency 3 or more drinks per day Substance Use Type marijuana The patient is . He has no children. He worked at a [employer]. He not drink alcohol but has a history of prior heavy use. He does not smoke tobacco. He smokes marijuana approximately once a day. Meds Home Medications and Allergies Home Medications Medication Instructions Recorded Confirmed Type amlodipine 10 mg tablet 5 mg PO BID #90 tab 12/01/19 02/12/20 Rx lisinopril 20 mg PO BID 02/12/20 02/12/20 History Allergies Allergy/AdvReac Type Severity Reaction Status Date / Time No Known Drug Allergies Allergy Verified 11/17/19 11:27 Review of Systems Review of Systems Narrative: A 10 system comprehensive review of systems was conducted with the patient and found to be negative except as above in the History of Present Illness. Exam Vital Signs (past 8 hours): - 02/12/20 08:31 02/12/20 11:28 02/12/20 11:30 Temperature 98.7 F Pulse Rate 71 81 64 Respiratory Rate 18 Blood Pressure 136/77 129/80 Pulse Oximetry 98 100 100 02/12/20 11:33 02/12/20 13:08 Temperature 97.4 F L Pulse Rate 63 52 L Respiratory Rate 18 18 Blood Pressure 129/80 186/86 H Pulse Oximetry 100 98 Oxygen Delivery Method Room Air Oxygen Flow Rate 0 Narrative Exam Narrative: General: Young male lying acute distress, well-developed, well-nourished, appropriately interactive in bed and in no. HEENT: Normocephalic, atraumatic. External ears without defect. Pupils equal, round, and reactive to light. Anicteric sclerae, moist conjunctivae, and no lid lag. Oropharynx free of erythema and cobble stoning with moist mucosa. Neck: Supple with full range of motion. No lymphadenopathy or thyromegaly. Cardiovascular: Regular rate and rhythm without murmurs, rubs, or gallops nery reciated. Pulmonary: Clear to auscultation bilaterally without crackles, wheezes, or rhonchi. Normal respiratory effort with no use of accessory muscles. Abdomen: Soft, bowel sounds present, nontender, nondistended. No hepatosplenomegaly or masses appreciated. Extremities: No clubbing, cyanosis, or edema. Right arm in sling with mild edema of right forearm and hand. Distal sensation and movement intact. No signs of compartment syndrome. Scattered ecchymoses on right arm and right ribcage. Skin: Normal temperature, turgor, and texture; no rash, ulcers, or subcutaneous nodules appreciated. Neurological: Cranial nerves grossly intact. Psychiatric: Normal mood and affect. Alert and oriented to person, place, and time. Objective Labs Result Diagrams: 02/12/20 09:06 02/12/20 09:06 Labs: Laboratory Results - last 24 hr 02/12/20 02/12/20 02/12/20 09:06 09:06 09:17 WBC 3.5 L RBC 4.13 L Hgb 12.7 L Hct 38.1 L MCV 92.2 MCH 30.7 MCHC 33.3 RDW 13.3 Plt Count 285 Neut % (Auto) 46.9 L Lymph % (Auto) 31.7 Lassen % (Auto) 15.4 H Eos % (Auto) 5.3 H Baso % (Auto) 0.7 Neut # (Auto) 1700 Lymph # (Auto) 1100 Lassen # (Auto) 500 Eos # (Auto) 200 Baso # (Auto) 0 Sodium 139 Potassium 4.1 Chloride 104 Carbon Dioxide 30 BUN 21 H Creatinine 0.85 Estimated GFR > 60.0 BUN/Creatinine Ratio 24.7 H Glucose 113 H Calcium 9.0 Total Bilirubin 0.7 AST 65 H ALT 67 H Alkaline Phosphatase 60 Total Protein 7.3 Albumin 4.2 Globulin 3.1 Albumin/Globulin Ratio 1.4 COVID-19 PCR Negative Assessment & Plan Assessment & Plan narrative: Fred Estevez is a 39-year-old male with a past medical history significant for hypertension and 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 1. Acute right mid shaft minimally displaced and comminuted humeral fracture, present on admission. Active. -Patient presented 5 days after sustaining traumatic injury from a tree branch falling on his right arm and right chest wall/rib cage with worsening pain and swelling of his right arm. -X-ray right humerus demonstrated comminuted fracture of the midshaft of the right humerus. -CT right upper extremity without contrast demonstrated mildly displaced, comminuted fracture of the mid shaft of the right humerus and a mildly displaced coracoid fracture. No evidence of glenohumeral dislocation. -Continue pain control with icing frequently no more than 20 minutes at a time, acetaminophen 650 mg every 6 hours as needed for mild pain, and oxycodone 5 mg every 6 hours as needed for moderate to severe pain. -Orthopedic surgery, Dr. Hare, consulted by ED physician and based on type of fracture this is nonsurgical and recommended observation for compartment syndr ome, pain control and mobilization with PT. We appreciate his time and recommendations. -Ordered physical and occupational therapy evaluation and treatment, pending. 2. Hypertension, chronic, present on admission. Stable. -Continue home amlodipine 5 mg twice daily and lisinopril 20 mg twice daily. 3. History of trauma to skull resulting in hemorrhagic CVA status post jareth hole procedure with mild memory impairment. Code status: Full code VTE prophylaxis: Enoxaparin, SCDs Patient is admitted under observation status with expected length of stay less than 2 midnights due to severity of presenting symptoms, risk of adverse event, and complexity of treatment plan.
[2020-02-12] MEDS: ACETAMINOPHEN 325 MG TABLET 650 MG PO (15:52)
[2020-02-12] MEDS: lisinopriL 20 MG TABLET PO (20:55)
[2020-02-12] MEDS: DOCUSATE 100 MG CAPSULE PO (20:55)
[2020-02-12] MEDS: AMLODIPINE 5 MG TABLET PO (20:55)
--- NOTE | 2020-02-12 21:50 | PC.NURSE ---
Pt resting in room with R arm elevated, shoulder immobilizer and sling in place. Ice pack place to R arm and rib cage, pt states ice helps the pain. CMS intact. Moves about independently in the room, able to make needs known. Call light within reach,
[2020-02-13] VITALS (8 sets, daily range): BP systolic 129–133; BP diastolic 81–85; PULSE 61–84; RESP 17–18; TEMP 36.3–36.5; O2SAT 98–100
[2020-02-13] MEDS: OXYCODONE IR 5 MG TABLET PO ×3 (01:58→16:29)
--- NOTE | 2020-02-13 06:50 | PC.NURSE ---
0600 Pt states that analgesia and ice have been effective in reducing pain. RUE ortho checks stable with good CMS.
--- NOTE | 2020-02-13 07:44 | PM.DS.1 ---
History of Present Illness History of Present Illness Date Patient Seen: 02/12/20 Chief complaint: bruising/cast rt arm Narrative: Written by myself Dr. 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 The patient reports that 5 days ago on 01/07/2020 he was helping his friend cut down a tree when a tree branch fell on him resulting in a right humeral fracture. The patient was seen at [facility] and it was determined to that his right humeral fracture is nonsurgical and he was placed in a sling and discharged with hydrocodone. The patient was instructed to follow-up with Orthopedic surgery and attempted to contact them but had no answer. He continued to have minimally controlledright arm pa in and chest wall/rib pain due from trauma with increased swelling of right arm prompting him to go to the ED. He denies loss of sensation, numbness, paresthesias or weakness. He has no other complaints and denies headache, chest pain, shortness of breath, cough, abdominal pain, nausea, vomiting, fever, chills, dysuria, diarrhea or constipation. His appetite is unchanged. He does not feel the sling fits him well and inquires if there is another type of sling that could better immobilize his right arm. ED course: Repeat imaging including right humeral x-ray and CT without contrast demonstrated mildly displaced, comminuted fracture of the mid shaft of the right humerus and a mildly displaced coracoid fracture also seen. No evidence of glenohumeral dislocation. Orthopedic surgery, Dr. Hare, was contacted who recommended observation for pain control and evaluation from Orthopedic surgery and physical therapy. Discharge Providers Provider Date of admission: 02/12/20 11:29 Discharge Date: 02/13/20 Primary care physician: Steve Leiva DO Consults: 02/12/20 10:58 Consult to Orthopedic Surgery Stat Comment: Consulting Provider: Yvonne Hare Reason for consultation: Arm fracture Has provider been notified: Yes 02/12/20 13:10 Consult to Occupational Therapy Evaluate & Treat Comment: Physician Instructions: Evaluate and treat Consult to Physical Therapy Evaluate & Treat Comment: Physician Instructions: Evaluate and Treat Discharge provider: Jenny Paul DO Summary Hospital Course Discharge Diagnosis: 1. Acute right mid shaft minimally displaced and comminuted humeral fracture, present on admission. Active. 2. Hypertension, chronic, present on admission. Stable. 3. History of trauma to skull resulting in hemorrhagic CVA status post jareth hole procedure with mild memory impairment. 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 1. Acute right mid shaft minimally displaced and comminuted humeral fracture, present on admission. Active. -Patient presented 5 days after sustaining traumatic injury from a tree branch falling on his right arm and right chest wall/rib cage with worsening pain and swelling of his right arm. -X-ray right humerus demonstrated comminuted fracture of the midshaft of the right humerus. -CT right upper extremity without contrast demonstrated mildly displaced, comminuted fracture of the mid shaft of the right humerus and a mildly displaced coracoid fracture. No evidence of glenohumeral dislocation. -Continued pain control with: icing frequently no more than 20 minutes at a time, acetaminophen 650 mg every 6 hours as needed for mild pain, and oxycodone 5 mg every 6 hours as needed for moderate to severe pain. -Orthopedic surgery, Dr. Hare, consulted by ED physician and based on type of fracture this is nonsurgical and recommended follow-up outpatient with previously referred orthopedic surgeon at [facility]. We appreciate his time and recommendations. -Continued physical therapy evaluation and treatment. 2. Hypertension, chronic, present on admission. Stable. -Continued home amlodipine 5 mg twice daily and lisinopril 20 mg twice daily. 3. History of trauma to skull resulting in hemorrhagic CVA status post jareth hole procedure with mild memory impairment. Exam Vital Signs (past 8 hours): Oxygen Delivery Method Room Air Oxygen Flow Rate 0 Narrative Exam Narrative: General: Young male lying in bed and in no acute distress, well-developed, well-nourished, appropriately interactive. HEENT: Normocephalic, atraumatic. External ears without defect. Pupils equal, round, and reactive to light. Anicteric sclerae, moist conjunctivae, and no lid lag. Oropharynx free of erythema and cobble stoning with moist mucosa. Neck: Supple with full range of motion. No lymphadenopathy or thyromegaly. Cardiovascular: Regular rate and rhythm without murmurs, rubs, or gallops appreciated. Pulmonary: Clear to auscultation bilaterally without crackles, wheezes, or rhonchi. Normal respiratory effort with no use of accessory muscles. Abdomen: Soft, bowel sounds present, nontender, nondistended. No hepatosplenomegaly or masses appreciated. Extremities: No clubbing, cyanosis, or edema of other extremities. Right arm in sling with mild edema of right forearm and hand. Distal sensation and movement intact. No signs of compartment syndrome. Scattered ecchymoses on right arm and right ribcage. Skin: Normal temperature, turgor, and texture; no rash, ulcers, or subcutaneous nodules appreciated. Neurological: Cranial nerves grossly intact. Psychiatric: Normal mood and affect. Alert and oriented to person, place, and time. Objective Labs Result Diagrams: 02/12/20 09:06 02/12/20 09:06 Discharge Plan Discharge Plan Patient Disposition: Home Discharge comment: You are being discharged home. You have been prescribed oxycodone 5 mg every 6 hours as needed for pain. Please follow-up with [facility] Orthopedic clinic next week and call on Friday to schedule appointment. Please follow-up with your primary care physician, Dr. Leiva, regarding your hospitalization and for leave of absence (FMLA) paperwork. Discharge orders & Medications Prescriptions: New polyethylene glycol 3350 17 gram Powder In Packet 17 gm PO DAILY PRN (Reason: Constipation) Qty: 30 RF: 0 docusate sodium [DOK] 100 mg Capsule 100 mg PO BID PRN (Reason: Constipation) Qty: 30 RF: 0 oxycodone 5 mg Tablet 5 mg PO Q6HR PRN (Reason: Pain, Moderate (4-6)) Qty: 10 RF: 0 Continued amlodipine 10 mg tablet 5 mg PO BID Qty: 90 RF: 3 lisinopril 40 mg tablet 20 mg PO BID RF: 0 Follow up/Referrals: Steve Leiva, [Primary Care Provider] - 3-5 Days Diet/Activity/Treatments Diet: Diet as Tolerated and Regular Activity: Keep right arm in brace. Adjust straps daily to make sure the brace is snug but do not over tighten Use sling to stablize arm as needed. Skin/Wound/Dressing Care Report to your healthcare provider any signs of infection, such as:: chills, fever, night sweats, increased pain, unusual drainage and unusual redness Visit Report/Discharge Packet Instructions: DI for Prescription Opioid Use, DI for Humeral Fracture Visit Report Forms: Patient Portal/API, Stroke Signs & Symptoms Discharge Data Primary Care Provider: Steve Leiva Attending Provider: Jenny Paul Admit Date/Time: 02/12/20 11:29 Discharges patient from system. Discharge Date/Time: 02/13/20 19:20
[2020-02-13] MEDS: lisinopriL 20 MG TABLET PO (08:46)
[2020-02-13] MEDS: AMLODIPINE 5 MG TABLET PO (08:50)
[2020-02-13] MEDS: DOCUSATE 100 MG CAPSULE PO (08:50)
--- NOTE | 2020-02-13 10:05 | PT.IIE ---
Surgical History (Last Updated 02/12/20 @ 23:25 by Jenny Paul DO) History of jareth hole surgery (Acute) Medical History (Last Reviewed 02/12/20 @ 09:14 by Danilo Jo MD) Eczema (Chronic) Hemorrhagic stroke (Acute ~2013) Hypertension (Chronic) Infertility (Acute) Migraines (Chronic) Viral syndrome (Acute) Physical Therapy Inpatient Evaluation/Re-Eval M1 PT/OT-IP Prior Functional Status Start: 02/13/20 08:35 Freq: NEEDED Status: Active Protocol: Document 02/13/20 10:00 AW (Rec: 02/13/20 14:05 AW [id number]) Medical Review Prior Functional Status Medical History Reviewed Yes Communication Pt has history of hemhorrhagic CVA and mild cognitive impairment. He is an effective verbal communicator. Mobility and Gait Pt is right-handed and independent with all mobilities. Activities of Daily Living and IADL's IND Social History Household Members significant other Living Arrangements House Number of Floors (Floors) One Floor Number of Stairs To Enter/Railing? level entrance Home Environment Standard Height Toilet,Tub/ Shower Employment Status Unemployed Additional Social History Comment Pt lives with his girlfriend who works full-time. Pt himself is currently unemployed. M2 PT-IP Current Condition Start: 02/13/20 08:35 Freq: NEEDED Status: Active Protocol: Document 02/13/20 10:00 AW (Rec: 02/13/20 14:05 AW [id number]) Physical Therapy Current Condition Current Condition Evaluation Date 02/13/20 Treatment Diagnosis R humerus fracture; impaired indep with ADL's Onset Date 02/12/20 M3 PT-IP Subjective Start: 02/13/20 08:35 Freq: NEEDED Status: Active Protocol: Document 02/13/20 10:00 AW (Rec: 02/13/20 14:05 AW [id number]) Subjective Physical Therapy Visit Type Type Initial Evaluation Visit Start Time 09:40 Visit Stop Time 09:53 Total Visit Minutes 13 Physical Therapy Visit Comments Patient Comments Pt is willing to participate with PT Patient Goals To go home with less swelling and pain Therapy Pain Assessment Pain When Pain Assessed During Mobility Pain Present Pain Present Pain Reported Location right arm Intensity 3 Pain Management Techniques Apply Cold,Re-positioning, Timing of Activity with Medications M4 PT-IP Mobility and Gait Start: 02/13/20 08:35 Freq: NEEDED Status: Active Protocol: Document 02/13/20 10:00 AW (Rec: 02/13/20 14:05 AW [id number]) PT-Bed Mobility Assessment Supine to Sit Supine to Sit Independent Sit to Supine Sit to Supine Independent Scooting Scooting to Edge of Bed Independent PT-Transfer Assessment Sit to and From Stand Sit to and from Stand Independent Equipment Transfer Assistive Device None Transfers Transfer Destination Chair Transfer Ability Level of Assist Independent Comments Mobility Comments Pt was lying in the bed as PT arrived. He completed all mobility safely and independently. PT used the mirror for visual feedback to demonstrate proper fitting of RUE sling which pt was able to demonstrate independently. Gait Assessment Gait Gait Assistance Required: Independent Distance (Feet) 120 Assistive Devices Assistive Device None Gait Deviations General Gait Pattern Within Normal Limits Comments Gait Comments WNL gait with good safety awareness. PT-Balance Assessment Sitting Balance and Reactions Static Sitting Balance Ability Normal Dynamic Sitting Balance Ability Normal Standing Balance and Reactions Static Standing Balance Ability Normal Dynamic Standing Balance Ability Good Device Used none Balance Tests Single Limb Standing >10 sec BLE M5 PT-IP Objective Assessments Start: 02/13/20 08:35 Freq: NEEDED Status: Active Protocol: Document 02/13/20 10:00 AW (Rec: 02/13/20 14:05 AW [id number]) Orientation Orientation/Cognition Level of Alertness Alert Orientation Name,Day of Week,Place, Situation Language Function Ability No Deficits Noted Safety Awareness Understands Safety Issues Memory Description No Deficits Noted Gross Range of Motion Upper Extremity ROM Assessment Right Impaired Lower Extremity ROM Assessment Within Functional Limits Strength Upper Extremity Strength Assessment Right Impaired Lower Extremity Strength Assessment Within Functional Limits Coordination Assessment Gross Coordination Gross Coordination WNL Sensation Assessment Sensation Gross Sensation WNL Muscle Tone Muscle Tone WNL Yes M6 PT-IP Treatment Start: 02/13/20 08:35 Freq: NEEDED Status: Active Protocol: Document 02/13/20 10:00 AW (Rec: 02/13/20 14:05 AW [id number]) Physical Therapy Treatment Exercises Exercises Shoulder Pendulums,Elbow Flexion/Extension,Wrist ROM, Hand ROM Education Education Provided Precautions,Safety Brace Education Donning,Duncan,Patient Other Treatments Other Treatment Performed Provided education on role of PT, plan of care, AROM for distal RUE, and pendulums for self-care and mobilization. M7 PT-IP Assessment and Plan Start: 02/13/20 08:35 Freq: NEEDED Status: Active Protocol: Document 02/13/20 10:00 AW (Rec: 02/13/20 14:05 AW [id number]) PT Summary Assessment and Plan Potential Rehabilitation Potential Excellent Summary Impairments Pain,ROM,Strength Assessment Summary Fred is a 39yo man seen for PT evaluation with right humerus fracture treated non- operatively. He is independent at baseline and completes all mobility independently on evaluation. Pt was educated on proper fit of RUE sling and on AROM for distal RUE. Pt is safe to discharge home when medically cleared. Frequency of Treatment Frequency Of Treatment Discharge Recommendations To Nursing Amount of Assist Needed Independent Discharge Recommendations PT Discharge Recommendations Home,Home with Assistance Transportation Needs at Discharge Private Vehicle
--- NOTE | 2020-02-13 11:15 | P.CONS_ITS ---
History of Present Illness Consult details Date Patient Seen: 02/13/20 Time Patient Seen: 11:15 Chief complaint: bruising/cast rt arm Reason for consult: Right humeral shaft fx Requesting provider: Jenny Paul Narrative: Mr. Estevez is a 39 yo M with hx of traumatic injury to his right arm from a tree falling onto him 1 week ago. He was seen at [facility] ED and was discharged with a Casas brace. He was instruc nanci to call [facility] orthopedics for f/u this past week. He was not able to reach the orthopedic clinic after multiple attempts. He presented to ED for evaluation of his arm concerned about pain and swe lling. Meds Home Medications and Allergies Home Medications Medication Instructions Recorded Confirmed Type amlodipine 10 mg tablet 5 mg PO BID #90 tab 12/01/19 02/12/20 Rx lisinopril 20 mg PO BID 02/12/20 02/12/20 History Allergies Allergy/AdvReac Type Severity Reaction Status Date / Time No Known Drug Allergies Allergy Verified 11/17/19 11:27 Exam Vital Signs (past 8 hours): - 02/13/20 06:02 02/13/20 06:08 02/13/20 10:00 Temperature 97.5 F L 97.4 F L Pulse Rate 63 84 Respiratory Rate 18 18 Blood Pressure 130/85 133/81 Pulse Oximetry 100 100 99 Oxygen Delivery Method Room Air Oxygen Flow Rate 0 Extrem Other: Well fitted right arm casas brace, skin intact, bruising over elbow region from hematoma draining by gravity into the distal portion of the limb. No S/s of DVT. Neurovascularly intact on exam. Objective Imaging right arm AP/LAT: My impression: Mid shaft right humerus fx with mild displacement and minimum angulation, currently in acceptable alignment Labs Result Diagrams: 02/12/20 09:06 02/12/20 09:06 Assessment & Plan Assessment & Plan narrative: Pt has right humeral shaft fx w/o neuro compromise. Currently in acceptable position in casas brace. I educated patient on how to adjust his brace daily as his swelling decreases. Patient was seen 1 week ago by [facility] ED and was instructed to f/u with their orthopedist. I called and spoke to [facility] ED physician yesterday and the orthopedist director external communications was contacted and was instructed to get this patient into their clinic. Patient was given the orthopedist's name at [facility] director external communications and is instructed to f/u with him. Patient can be discharged to home. I educated him to elevate his right arm and use a squeeze ball to help with circulation to his right arm to minimize swelling and minimize risk of DVT. He understands. I also instructed him if he still cannot get in touch with [facility] orthopedics for f/u to call [facility] for additional instruction. I will Rx him Renetta for discharge pain control.
--- NOTE | 2020-02-13 11:21 | CM.DANOTE ---
Discharge Planning/Care Management Case received, EMR reviewed and met with pt just after his PT evaluation. Introduced self and role. Pt is a 39 year old male who admitted yesterday to care of hospitalist team. PCP: Steve Elizabeth Payer: [facility] /Medicaid. Dr. Hare was consulted and PT worked with pt on specifics of his current sling. Dr. Paul has d/c'd pt. to home setting but wishes Dr. Hare to see pt first. Dr. Hare has just arrived now. Pt confirms his girlfriend Lynette will be picking him up after she gets off work today. P: home today as per above. Orthopedic clinic follow up is anticipated. CM Discharge Assessment Start: 02/13/20 11:18 Freq: Status: Active Protocol: Document 02/13/20 11:18 ITV (Rec: 02/13/20 11:20 ITV [id number]) Discharge Planning Assessment Advance Directives? No History Provided By Patient,Medical Record Has Patient been admitted in last 30 No days? Prior Living Arrangements House Household Members significant other Comment girl friend: Lynette Independent with ADL's Yes Review Status In Process
--- NOTE | 2020-02-13 11:47 | PC.NURSE ---
Addendum entered by Dayna Alvarez R.N. 02/13/20 13:23: Rx for Hydrocodone written by Dr Ananya marion, as Pt is taking oxycodone in house and Dr Paul will send same. Original Note: AM shift Pt is A/o x4, resting more comfortably at this time. immobilizer in place, and sling in use at all times. 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 Denies numbness or tingling
[2020-02-13] MEDS: ACETAMINOPHEN 325 MG TABLET 650 MG PO (16:29)
--- NOTE | 2020-02-13 19:26 | PC.NURSE ---
1920- Discharge instruction given to patient and Significant Other. Patient verbalized understanding. All medications reviewed and the importance of bowel care reviewed. IV heplock removed. Patient stable at the time of discharge.
== END 2020-02-13 19:20 | disposition home or self-care (01) ==
LOC: ED 11:29 → AC 11:40 → ICU 12:18
PROVIDERS: Admitting Provider Internal Medicine; Emergency Provider Emergency Medicine; PCP Family Medicine; Referring Provider Emergency Medicine; Visit Provider Internal Medicine
DX: M79.621 Pain in right upper arm (principal); I10 Essential (primary) hypertension; S42.351A Displaced comminuted fracture of shaft of humerus, right arm, initial encounter for closed fracture; S20.211A Contusion of right front wall of thorax, initial encounter; S42.131A Displaced fracture of coracoid process, right shoulder, initial encounter for closed fracture; I69.311 Memory deficit following cerebral infarction; Z11.59 Encounter for screening for other viral diseases
CPT/HCPCS: 36415; 71260; 73060; 73200; 74177; 80053; 85025; 87635; 96374; 96375; 97161; 99284; G0378; J2270; J2405; Q9967

== ENCOUNTER 2021-03-28 07:16 | Emergency (ER) | payer OTHER, MEDICAID, SELFPAY ==
[2020-02-12 12:41] VITALS: BMI 27.3
[2021-03-28 07:26] VITALS: BP 136/92; PULSE 86; RESP 18; TEMP 36.1; O2SAT 100; BMI 25.0
[2021-03-28 08:20] LABS: COVID19 -Nasal RAPID Negative (Negative)
--- NOTE | 2021-03-28 08:33 | ED_ITS ---
HPI - General Adult General Chief complaint: Upper Respiratory Symptoms Stated complaint: feeling sick, congested, headache Time Seen by Provider: 03/28/21 07:30 Source: patient Mode of arrival: Ambulatory Limitations: no limitations History of Present Illness HPI narrative: Patient is an otherwise healthy 40-year-old male. Is several months status post his 2nd Pfizer COVID-19 vaccine. Is here for evaluation of feeling sick, congested, headaches, sore throat and yesterday a decrease in taste. He has had symptoms for the past 7 days. He was concerned about COVID- 19. Related Data Previous Rx's Medication Instructions Recorded docusate sodium 100 mg capsule 100 mg PO BID PRN #30 cap 02/13/20 (DOK) oxycodone 5 mg tablet 5 mg PO Q6HR PRN #10 tab 02/13/20 polyethylene glycol 3350 17 gram 17 gm PO DAILY PRN #30 ea 02/13/20 oral powder packet amlodipine 5 mg tablet 5 mg PO BID #60 tab 02/21/21 lisinopril 20 mg tablet 20 mg PO BID #60 tab 02/21/21 Allergies Allergy/AdvReac Type Severity Reaction Status Date / Time No Known Drug Allergies Allergy Verified 11/17/19 11:27 Review of Systems Constitutional Constitutional: Reports as per HPI and Reports system reviewed and no additional complaints, except as documented Eyes Eyes: Reports system reviewed and no additional complaints, except as documented ENT Ears, Nose, Mouth, and Throat: Reports system reviewed and no additional complaints, except as documented and Reports as per HPI Respiratory Respiratory: Reports as per HPI and Reports system reviewed and no additional complaints, except as documented Integumentary/Breasts Skin/Breast: Reports system reviewed and no additional complaints, except as documented Hematologic/Lymphatic On Anticoagulants: No Patient History Medical History Eczema Hemorrhagic stroke (~2012) Hypertension Infertility Migraines Viral syndrome Surgical History (Updated 02/12/20 @ 23:25 by Jenny Paul DO) History of jareth hole surgery Family History Father Hypertension Mother Hypertension Brother Hypertension Sister Hypertension Grandfather Hypertension Social History household members: spouse Smoking Status: Never smoker second hand exposure: Yes alcohol intake: current substance use type: marijuana Smoking Status: Never smoker alcohol intake frequency: other Substance Use Type: marijuana Exam Initial Vital Signs Initial Vital Signs: Vital Signs Temperature 96.9 F L 03/28/21 07:26 Pulse Rate 86 03/28/21 07:26 Respiratory Rate 18 03/28/21 07:26 Blood Pressure 136/92 H 03/28/21 07:26 Pulse Oximetry 100 03/28/21 07:26 Const General: cooperative and healthy appearing HENMT Ears: other (Bilateral tympanic membranes obscured by cerumen) Nose: external nose normal Throat: posterior oropharynx normal Chest Chest: normal inspection of the chest Resp Effort & Inspection: normal respiratory effort Auscultation: clear to auscultation bilaterally Cardio Rate: regular rate Rhythm: regular rhythm Skin General: no rashes or lesions noted Neuro General: patient alert, patient awake and moves all extremities Extrem General: normal to inspection Course Orders Ordered: ED Orders 03/28/21 07:24 COVID19 -Nasal swab/Pre-Proc Stat Vital Signs Vital signs: Vital Signs - 8 hr 03/28/21 07:26 Temperature 96.9 F L Pulse Rate 86 Respiratory Rate 18 Blood Pressure 136/92 H Pulse Oximetry 100 Medical Decision Making Lab Data Labs: Lab Results 03/28/21 Range/Units 07:24 SARS-CoV-2 (PCR) Negative (Negative) MDM Narrative Medical decision making narrative: Patient has been vaccinated against COVID. His COVID test today is negative. Lungs are clear. Vital signs unremarkable. Nontoxic appearing. I did discuss with him the potential about false negatives however feel that this is unlikely given his clinical presentation. We did discuss his symptoms and thinks that he can try at home. No indication for antibiotics. He was given return precautions and follow-up instructions. He expressed understanding and agreement. Discharge Plan Departure Patient Disposition: Home Clinical Impression: Acute upper respiratory infection Instructions: DI for Viral Upper Respiratory Infection -- Adult Activity Restrictions/Additional Instructions: Your COVID test was negative however it is important that you continue to social distance and practice good hygiene by covering your mouth and washing your hands. There is no signs of any infection that would require antibiotics. Contact your primary doctor for a follow-up. Continue all of your medications as directed. Return to the emergency department for any new or worsening symptoms Prescriptions: No Action lisinopril 20 mg tablet 20 mg PO BID Qty: 60 RF: 0 amlodipine 5 mg tablet 5 mg PO BID Qty: 60 RF: 0 polyethylene glycol 3350 17 gram Powder In Packet 17 gm PO DAILY PRN (Reason: Constipation) Qty: 30 RF: 0 docusate sodium [DOK] 100 mg Capsule 100 mg PO BID PRN (Reason: Constipation) Qty: 30 RF: 0 oxycodone 5 mg Tablet 5 mg PO Q6HR PRN (Reason: Pain, Moderate (4-6)) Qty: 10 RF: 0 Referrals: Steve Leiva, [Primary Care Provider] - Stand Alone Forms: Work Release Note
[2021-03-28 08:50] VITALS: BP 111/55; PULSE 82; RESP 18; O2SAT 99
== END 2021-03-28 08:51 | disposition home or self-care (01) ==
PROVIDERS: Emergency Provider Emergency Medicine; PCP Family Medicine
DX: J06.9 Acute upper respiratory infection, unspecified (principal); Z20.822 Contact with and (suspected) exposure to COVID-19
CPT/HCPCS: 87635; 99281; 99282; C9803

== ENCOUNTER → 2021-05-02 10:43 | Outpatient (CLI) | payer OTHER, MEDICAID, SELFPAY ==
[2020-02-12 12:41] VITALS: BMI 27.3
[2021-05-02 13:01] LABS: Add Manual Diff / Slide Review NO; Basophils Absolute Auto 0 /uL (0-100); Basophils Percent Auto 0.7 % (0-2); Eosinophils Absolute Auto 200 /uL (0-450); Eosinophils Percent Auto 6.2 % (2-4); Hematocrit 42.4 % (41-53); Hemoglobin 14.1 g/dL (13.5-17.5); Lymphocytes Absolute Auto 1400 /uL (1100-4500); Lymphocytes Percent Auto 46.3 % (25-40); Mean Corpuscular HGB Conc 33.4 % (30-36); Monocytes Absolute Auto 400 /uL (0-900); Monocytes Percent Auto 13.9 % (3-14); Neutrophils Absolute Auto 1000 /uL (1500-7000); Neutrophils Percent Auto 32.9 % (50-75); Platelet Count 253 X10^3/uL (150-400); Red Blood Cell Count 4.87 X10^6/uL (4.5-5.9); Red Cell Distribution Width 13.5 % (11.6-14.8)
[2021-05-02 14:11] LABS: Alanine Aminotransferase 17 IU/L (<50); Albumin 4.5 g/dL (3.5-5.0); Albumin Globulin Ratio 1.6 (1.0-2.8); Alkaline Phosphatase 52 U/L (38-126); Aspartate Aminotransferase 26 IU/L (17-59); BUN Creatinine Ratio 17.3 (6-22); Bilirubin Total 0.5 mg/dL (0.2-1.3); Blood Urea Nitrogen 13 mg/dL (9-20); Calcium 9.3 mg/dL (8.4-10.2); Carbon Dioxide 28 mmol/L (22-32); Chloride 103 mmol/L (98-107); Estimated Glomerular Filt Rate > 60.0 mL/min (>60); Globulin 2.8 g/dL (1.7-4.1); Glucose 83 mg/dL (70-100); HEMOLYSIS < 15 (0-50); Potassium 4.2 mmol/L (3.4-5.1); Sodium 140 mmol/L (137-145); Total Protein 7.3 g/dL (6.3-8.2)
== END ==
PROVIDERS: PCP Family Medicine; Referring Provider Family Medicine; Visit Provider Family Medicine
DX: I10 Essential (primary) hypertension (principal)
CPT/HCPCS: 36415; 80053; 85025

== ENCOUNTER 2021-11-15 17:47 | Emergency (ER) | payer OTHER, MEDICAID, SELFPAY ==
[2020-02-12 12:41] VITALS: BMI 27.3
[2021-11-15 17:56] VITALS: BP 167/105; PULSE 60; RESP 18; TEMP 36.9; O2SAT 100; BMI 25.0
--- NOTE | 2021-11-15 18:49 | ED.DENTAL ---
HPI - Dental/Oral General Chief complaint: Dental/Oral Stated complaint: rt sided dental pain Time Seen by Provider: 11/15/21 18:41 Source: patient Mode of arrival: Ambulatory History of Present Illness HPI Narrative: Patient here for dental pain for the past 2 days. Denies any recent dental procedures or injury. Patient does not smoke. Patient has appointment with his dentist next month. No drooling. No trouble swallowing. No trouble breathing. No ear pain. No fever chills. No recent antibiotics. Related Data Previous Rx's Medication Instructions Recorded docusate sodium 100 mg capsule 100 mg PO BID PRN Constipation #30 02/13/20 (DOK) caps polyethylene glycol 3350 17 gram 17 gm PO DAILY PRN Constipation 02/13/20 oral powder packet #30 ea amlodipine 5 mg tablet 5 mg PO BID #180 tabs 05/24/21 lisinopril 20 mg tablet 20 mg PO BID #180 tabs 05/26/21 ibuprofen 600 mg tablet 600 mg PO Q6H PRN fever or pain 11/15/21 #24 tabs penicillin V potassium 500 mg 500 mg PO QID #40 tabs 11/15/21 tablet Allergies Allergy/AdvReac Type Severity Reaction Status Date / Time No Known Drug Allergies Allergy Verified 11/15/21 17:55 Review of Systems Review of Systems Narrative: GENERAL: Denies chills, fatigue, malaise, fever, sweats. HEENT: Denies sinus pain, ear pain, sore throat, positive dental pain RESPIRATORY: Denies dyspnea, cough CARDIOVASCULAR: Denies chest pain, palpitations GASTROINTESTINAL: Denies nausea, vomiting, abdominal pain : Denies dysuria, frequency, hematuria MUSCULOSKELETAL: denies muscle or bony pain SKIN: Denies rash, skin lesions NEUROLOGIC: Denies weakness, numbness ROS Unobtainable: All systems reviewed & are unremarkable except as noted in HPI and below Patient History Medical History Eczema Hemorrhagic stroke (~2012) Hypertension Infertility Migraines Neutropenia Viral syndrome Surgical History History of jareth hole surgery Family History Father Hypertension Mother Hypertension Brother Hypertension Sister Hypertension Grandfather Hypertension Social History household members: spouse Smoking Status: Never smoker second hand exposure: Yes alcohol intake: current substance use type: marijuana Smoking Status: Never smoker alcohol intake frequency: other Substance Use Type: marijuana Exam Narrative Exam Narrative: GENERAL: in no distress, not toxic not dyspneic HEAD: Normocephalic. EYES: Pupils equal round No scleral icterus. ENT: Mucous membranes moist. There is dental decay at tooth 20. No jaw swelling. No palpable abscess. It is tender to touch. Small fracture line on the lateral aspect of the tooth. In general, patient does have poor dentition. No mandibular tenderness externally. No erythema of the skin/cheek NECK: Trachea midline. NEURO: AOx4. SKIN: Warm and dry PSYCH: Not anxious, is cooperative Initial Vital Signs Initial Vital Signs: Vital Signs Temperature 98.5 F 11/15/21 17:56 Pulse Rate 60 11/15/21 17:56 Respiratory Rate 18 11/15/21 17:56 Blood Pressure 167/105 H 11/15/21 17:56 Pulse Oximetry 100 11/15/21 17:56 Oxygen Delivery Method 11/15/21 17:56 Course Course Course Narrative: No new issues during course of stay Orders Ordered: Discontinued Medications Ibuprofen (Ibuprofen 400 Mg Tablet) 800 mg PO NOW ONE Stop: 11/15/21 18:49 Last Admin: 11/15/21 18:57 Dose: 800 mg Documented By: JIM Penicillin V Potassium (Penicillin Vk 250 Mg Tablet) 500 mg PO NOW ONE Stop: 11/15/21 18:49 Last Admin: 11/15/21 18:57 Dose: 500 mg Documented By: JIM Reevaluation(s) Reevaluation #1: Reviewed with patient treatment plan he agrees. He will follow-up with his primary care regarding his blood pressure. He will call his dentist office to move up the appointment. Return precautions reviewed with him. Vital Signs Vital signs: Vital Signs - 8 hr 11/15/21 18:58 Pulse Rate 74 Respiratory Rate 16 Blood Pressure 152/100 H Pulse Oximetry 100 Oxygen Delivery Method Room Air MDM - Dental/Oral Differential Diagnosis Differential diagnosis: Likely gingival abscess, dental caries, toothache, dental abscess and fracture of tooth MDM Narrative Medical decision making narrative: Appropriate for discharge home. Return precautions reviewed with patient. Patient not toxic. No blood work or imaging indicated. Clinically dental caries with partial fracture. Patient does have appointment with his dentist established. Discharge Plan Departure Patient Disposition: Home Clinical Impression: Dental caries Instructions: Tooth Decay, DI for Dental Pain Activity Restrictions/Additional Instructions: Call your dental office tomorrow to try to move your appointment up closer and earlier. Prescription for Motrin as well as antibiotic has been sent to your [facility] in [place]. Be sure to eat soft foods to prevent injury to the tooth. No crunchy foods. Return if worsening questions or concerns. Be sure to have your blood pressure rechecked with your family doctor within a week. Prescriptions: New penicillin V potassium 500 mg tablet 500 mg PO QID Qty: 40 0RF ibuprofen 600 mg tablet 600 mg PO Q6H PRN (Reason: fever or pain) Qty: 24 0RF No Action amlodipine 5 mg tablet 5 mg PO BID Qty: 180 3RF lisinopril 20 mg tablet 20 mg PO BID Qty: 180 3RF polyethylene glycol 3350 17 gram Powder In Packet 17 gm PO DAILY PRN (Reason: Constipation) Qty: 30 0RF docusate sodium [DOK] 100 mg Capsule 100 mg PO BID PRN (Reason: Constipation) Qty: 30 0RF Referrals: Steve Leiva DO [Primary Care Provider] - Visit Report Forms: Patient Portal/API
[2021-11-15] MEDS: PENICILLIN VK 250 MG TABLET 500 MG PO (18:57)
[2021-11-15] MEDS: IBUPROFEN 400 MG TABLET 800 MG PO (18:57)
[2021-11-15 18:58] VITALS: BP 152/100; PULSE 74; RESP 16; O2SAT 100
== END 2021-11-15 19:01 | disposition home or self-care (01) ==
PROVIDERS: Emergency Provider Emergency Medicine; PCP Family Medicine
DX: K02.9 Dental caries, unspecified (principal)
CPT/HCPCS: 99283

== ENCOUNTER 2022-07-22 06:36 | Day surgery (SDC) | payer OTHER, MEDICAID, SELFPAY ==
[2020-02-12 12:41] VITALS: BMI 27.3
[2022-07-17 14:34] VITALS: BMI 26.2
[2022-07-22] VITALS (8 sets, daily range): BP systolic 119–132; BP diastolic 70–81; PULSE 55–87; RESP 10–18; TEMP 36.2–36.7; O2SAT 99–100; BMI 24.3
--- NOTE | 2022-07-22 07:43 | PM.PREOP ---
Pre-operative Note COVID-19 COVID-19 status: Not tested Interval Note History & Physical reviewed/Exam performed by Physician: Yes Changes to H&P: No ASA Class (for procedural sedation): II
[2022-07-22] MEDS: CEFAZOLIN 2 GM/100 ML PREMIX 100 ML IV (07:52)
--- NOTE | 2022-07-22 08:09 | SUR.OPER ---
Supine on padded OR bed, head on pillow, arms secured on padded arm boards at <90 degrees abduction, legs uncrossed, safety belt at thigh.
[2022-07-22] MEDS: BUPIVACAINE 0.5% W/ EPI (PF) 30 ML VIAL INJ (08:15)
[2022-07-22] MEDS: LACTATED RINGERS 1,000 ML 120 ML IV (08:46)
--- NOTE | 2022-07-22 09:25 | PM.OP.1 ---
Operative Date/Time/Diagnoses Date of procedure: 07/22/22 Time of procedure: 09:25 Pre-op diagnosis: Right inguinal hernia Post-op diagnosis: same Procedure & Clinicians Procedure: Open right inguinal hernia repair with mesh Same procedure as scheduled: Yes Surgeon: Brad Jaffe Operative Notes Findings: Indirect hernia sac Procedure in detail: Preoperative antibiotic was administered. The patient was brought to the operating room and placed on the table in supine position general anesthesia was induced. The right groin was prepped and draped in the normal fashion and a time-out was performed. Roughly 10 mL of local anesthetic were injected into the skin and subcutaneous adipose tissue over the right groin. A 6 cm incision was made over the right inguinal canal. Dissection was carried down through the subcutaneous adipose tissue. We exposed the external oblique aponeurosis in the direction of the fibers. Additional local was injected deep to the aponeurosis. A 15 blade scalpel was used to pamela the external oblique aponeurosis. Metzenbaum scissors were used to carefully open the aponeurosis in the direction of the fibers taking care not to injure the underlying ilioinguinal nerve. We completely exposed the inguinal canal. The cord was dissected free from the inguinal ligament and floor of the inguinal canal and the external oblique aponeurosis was dissected off of the internal oblique taking care not to injure the hypogastric nerve. We encircled the cord with a Woodbridge drain for retraction. There was a small indirect defect and a small perineal cyst on the sac. The sac was dissected free from the cord structures. Additional fatty tissue was dissected off the cord and together with the sac were reduced into the abdomen with the aid of some Trendelenburg. We then placed a polypropylene mesh against the floor of the inguinal canal. The mesh was secured with multiple interrupted 3-0 Prolene sutures to the pubic tubercle and shelving edge of the inguinal ligament as well as to the conjoint tendon medially. We overlapped the tails to recreate an internal ring and secured the medial tail to the inguinal ligament with additional sutures. We injected some more local into the fatty tissue in the inguinal canal and cord. Finally, we removed the Woodbridge drain and closed the external oblique fascia with a running 3-0 Vicryl suture. Skin was closed with interrupted 3-0 Vicryl dermal sutures and a running 4 Monocryl subcuticular stitch. EBL 5 mL The patient was awakened and brought to recovery room. Post-operative Condition: stable Disposition: PACU
[2022-07-22] MEDS: OXYCODONE IR 5 MG TABLET PO ×2 (09:44→10:16)
== END 2022-07-22 10:22 | disposition home or self-care (01) ==
PROVIDERS: PCP Family Medicine; Referring Provider Surgery; Visit Provider Surgery
PROC: (CPT 49505; principal; 2022-07-22 07:45)
DX: K40.90 Unilateral inguinal hernia, without obstruction or gangrene, not specified as recurrent (principal)
CPT/HCPCS: 49505; J0690; J1100; J1885; J2250; J2405; J2704; J3010

== ENCOUNTER → 2023-04-12 10:16 | Outpatient (CLI) | payer OTHER, SELFPAY ==
[2020-02-12 12:41] VITALS: BMI 27.3
[2023-04-12 11:33] LABS: Alanine Aminotransferase 31 IU/L (<50); Albumin 4.3 g/dL (3.5-5.0); Albumin Globulin Ratio 1.7 (1.0-2.8); Alkaline Phosphatase 45 U/L (38-126); Aspartate Aminotransferase 27 IU/L (17-59); BUN Creatinine Ratio 23.7 (6-22); Bilirubin Total 0.6 mg/dL (0.2-1.3); Blood Urea Nitrogen 18 mg/dL (9-20); Calcium 9.6 mg/dL (8.4-10.2); Carbon Dioxide 28 mmol/L (22-32); Chloride 103 mmol/L (98-107); Estimated Glomerular Filt Rate > 60 mL/min (>60); Globulin 2.6 g/dL (1.7-4.1); Glucose 92 mg/dL (70-100); HEMOLYSIS < 15 (0-50); Potassium 4.8 mmol/L (3.4-5.1); Sodium 139 mmol/L (137-145); Total Protein 6.9 g/dL (6.3-8.2)
== END ==
PROVIDERS: PCP Family Medicine; Referring Provider Family Medicine; Visit Provider Family Medicine
DX: I10 Essential (primary) hypertension (principal)
CPT/HCPCS: 36415; 80053

== ENCOUNTER 2023-05-13 06:30 | Day surgery (SDC) | payer OTHER, SELFPAY ==
[2020-02-12 12:41] VITALS: BMI 27.3
[2023-05-08 13:47] VITALS: BMI 25.8
[2023-05-13] VITALS (10 sets, daily range): BP systolic 110–142; BP diastolic 65–90; PULSE 57–65; RESP 8–16; TEMP 36.2–36.6; O2SAT 98–100; BMI 25.0
[2023-05-13] MEDS: LACTATED RINGERS 1,000 ML 42 ML IV (07:02)
--- NOTE | 2023-05-13 07:15 | SUR.OPER ---
Supine on padded OR bed, head on pillow, arms padded and tucked at sides, legs uncrossed, safety belt at thigh, tape over blanket over lower legs .
--- NOTE | 2023-05-13 07:40 | PM.PREOP ---
Pre-operative Note COVID-19 COVID-19 status: Not tested Interval Note History & Physical reviewed/Exam performed by Physician: Yes Changes to H&P: No ASA Class (for procedural sedation): II
[2023-05-13] MEDS: CEFAZOLIN 2 GM/100 ML PREMIX 100 ML IV (08:00)
[2023-05-13] MEDS: LIDOCAINE 1% W/EPI 20 ML INJ (08:22)
[2023-05-13] MEDS: BUPIVACAINE 0.5% (PF) 30 ML VIAL INJ (08:25)
--- NOTE | 2023-05-13 10:05 | PM.OP.1 ---
Operative Date/Time/Diagnoses Date of procedure: 05/13/23 Time of procedure: 10:05 Pre-op diagnosis: Recurrent right inguinal hernia Post-op diagnosis: same Procedure & Clinicians Procedure: Laparoscopic right inguinal hernia repair with mesh Same procedure as scheduled: Yes Surgeon: Brad Jaffe Anesthesia Type: General Operative Notes Procedure in detail: The patient was given preoperative antibiotics. The patient was brought to the operating room, placed on the table in the supine position with the arms tucked and general anesthesia was induced. The abdomen was prepped and draped in the usual fashion. A time-out was performed. A 1 cm supraumbilical incision was created and dissection was carried down to the anterior sheath. The fascia was scored transversely with cautery. The inferior leaf of the fascia was grasped with a Ti clamp to elevate abdominal wall and a Peon clamp was used to garcia the peritoneum. The Antonietta port was placed and the abdomen was insufflated to 15 mmHg. The camera was inserted, there was no evidence of any injury from the entry. There was a right indirect inguinal hernia. 5 mm ports were placed under direct vision in the mid left and mid right abdomen. The patient was positioned in steep Trendelenburg. We created right peritoneal flap. The peritoneum was dissected off of the cord structures in the sac was dissected out of the internal ring. A a large right Bard mesh was brought in and placed over the defect with the medial edge against Jimbo's ligament. We then closed the peritoneal flap with a running 3-0 barbed suture. There was 1 small peritoneal defect that was closed with a single 3-0 Vicryl stitch. We took one last look around the abdomen and saw no other abnormalities. The suture was removed and accounted for. The 5 mm ports were removed under direct vision. The abdomen was desufflated. The Antonietta port was removed. Additional local was injected into the fascia and the fascial incision was closed with 2 interrupted 0 Vicryl sutures. The skin incisions were closed with 4 Monocryl, Steri-Strips and Band-Aids. EBL: 10 mL Post-operative Condition: stable Disposition: PACU
[2023-05-13] MEDS: OXYCODONE IR 5 MG TABLET PO (10:26)
[2023-05-13] MEDS: ACETAMINOPHEN 325 MG TABLET 975 MG PO (10:26)
== END 2023-05-13 11:07 | disposition home or self-care (01) ==
PROVIDERS: PCP Family Medicine; Referring Provider Surgery; Visit Provider Surgery
PROC: 0YQ54ZZ Repair Right Inguinal Region, Percutaneous Endoscopic Approach (ICD-10-PCS; CPT 49651; principal; 2023-05-13 07:45)
DX: K40.91 Unilateral inguinal hernia, without obstruction or gangrene, recurrent (principal)
CPT/HCPCS: 49651; J0690; J1100; J1885; J2250; J2405; J2704; J3010

== ENCOUNTER → 2024-01-26 08:31 | Outpatient (CLI) | payer OTHER, SELFPAY ==
[2020-02-12 12:41] VITALS: BMI 27.3
[2024-01-26 09:32] LABS: Add Manual Diff / Slide Review NO; Basophils Absolute Auto 0 /uL (0-100); Basophils Percent Auto 0.6 % (0-2); Eosinophils Absolute Auto 200 /uL (0-450); Eosinophils Percent Auto 5.5 % (2-4); Hematocrit 41.2 % (41-53); Hemoglobin 13.9 g/dL (13.5-17.5); Lymphocytes Absolute Auto 1100 /uL (1100-4500); Lymphocytes Percent Auto 33.4 % (25-40); Mean Corpuscular HGB Conc 33.7 % (30-36); Mean Corpuscular Hemoglobin 30.3 PG (26-34); Monocytes Absolute Auto 500 /uL (0-900); Monocytes Percent Auto 15.8 % (3-14); Neutrophils Absolute Auto 1400 /uL (1500-7000); Neutrophils Percent Auto 44.7 % (50-75); Platelet Count 243 X10^3/uL (150-400); Red Blood Cell Count 4.58 X10^6/uL (4.5-5.9); Red Cell Distribution Width 13.4 % (11.6-14.8); White Blood Cell Count 3.2 X10^3/uL (4.5-11.0)
[2024-01-26 10:16] LABS: Cholesterol 211 mg/dL (140-199); HDL Cholesterol 80 mg/dL (40-60); LDL Cholesterol Calculated 118 mg/dL (<100); Triglycerides 63 mg/dL (35-150)
[2024-01-26 10:41] LABS: TSH w/ Reflex to FT4 0.35 uIU/mL (0.47-4.68)
[2024-01-26 10:43] LABS: Testosterone 490 ng/dL (132-813)
[2024-01-26 12:03] LABS: Free T4, Direct Thyroxine 0.91 ng/dL (0.78-2.19)
== END ==
PROVIDERS: PCP Family Medicine; Referring Provider Family Medicine; Visit Provider Family Medicine
DX: Z00.00 Encounter for general adult medical examination without abnormal findings (principal); I10 Essential (primary) hypertension; R68.82 Decreased libido
CPT/HCPCS: 36415; 80061; 84403; 84439; 84443; 85025

== ENCOUNTER → 2024-06-28 07:25 | Outpatient (CLI) | payer OTHER, SELFPAY ==
[2020-02-12 12:41] VITALS: BMI 27.3
--- NOTE | 2024-06-28 07:27 | DI.US.S_ITS ---
PROCEDURE: US SOFT TISSUE HEAD AND NECK INDICATIONS: ENLARGED CERVICAL NODES BILATERAL TECHNIQUE: Real-time scanning was performed of the neck region of interest, with image documentation. COMPARISON: None. FINDINGS: Prominent lymph nodes are noted in bilateral neck soft tissue at submandibular space measures up to 4.4 x 1.2 x 3.5 cm in size on the right side and up to 4.6 x 1.4 x 3.5 cm in size on the left side. IMPRESSION: Prominent bilateral submandibular lymph nodes as described above which may be reactive in nature suggest clinical correlation. Dictated by: Asa Ludwig M.D. on 06/28/2024 at 16:20 Approved by: Asa Ludwig M.D. on 06/28/2024 at 16:21
== END ==
PROVIDERS: PCP Family Medicine; Referring Provider Family Medicine; Visit Provider Family Medicine
DX: R59.0 Localized enlarged lymph nodes (principal)
CPT/HCPCS: 76536

== ENCOUNTER → 2024-07-26 14:24 | Outpatient (CLI) | payer OTHER, SELFPAY ==
[2020-02-12 12:41] VITALS: BMI 27.3
[2024-07-26 14:55] LABS: Hematocrit 39.4 % (41-53); Hemoglobin 13.4 g/dL (13.5-17.5); Mean Corpuscular Hemoglobin 30.7 PG (26-34); Mean Corpuscular Volume 90.4 fL (80-100); Platelet Count 250 X10^3/uL (150-400); Red Blood Cell Count 4.36 X10^6/uL (4.5-5.9); Red Cell Distribution Width 13.2 % (11.6-14.8); White Blood Cell Count 4.2 X10^3/uL (4.5-11.0)
[2024-07-26 15:20] LABS: Alanine Aminotransferase 31 IU/L (<50); Albumin 4.2 g/dL (3.5-5.0); Albumin Globulin Ratio 1.8 (1.0-2.8); Alkaline Phosphatase 62 U/L (38-126); Aspartate Aminotransferase 33 IU/L (17-59); BUN Creatinine Ratio 19.6 (6-22); Bilirubin Total 0.2 mg/dL (0.2-1.3); Blood Urea Nitrogen 18 mg/dL (9-20); Calcium 9.2 mg/dL (8.4-10.2); Carbon Dioxide 30 mmol/L (22-32); Chloride 106 mmol/L (98-107); Cholesterol 216 mg/dL (140-199); Estimated Glomerular Filt Rate > 60 mL/min (>60); Globulin 2.3 g/dL (1.7-4.1); Glucose 102 mg/dL (70-100); HDL Cholesterol 62 mg/dL (40-60); HEMOLYSIS < 15 (0-50); LDL Cholesterol Calculated 113 mg/dL (<100); Potassium 4.8 mmol/L (3.4-5.1); Sodium 138 mmol/L (137-145); Total Protein 6.5 g/dL (6.3-8.2); Triglycerides 206 mg/dL (35-150)
[2024-07-26 15:38] LABS: Free T4, Direct Thyroxine 0.85 ng/dL (0.78-2.19)
[2024-07-26 15:51] LABS: Thyroid Stimulating Hormone 0.503 uIU/mL (0.47-4.68)
[2024-07-26 15:52] LABS: Neutrophils Absolute Manual 1680 /uL (3000-5900); RBC Morphology Normal Morphology; Total Cells Counted 100
== END ==
PROVIDERS: PCP Family Medicine; Referring Provider Family Medicine; Visit Provider Family Medicine
DX: E03.9 Hypothyroidism, unspecified (principal); E78.5 Hyperlipidemia, unspecified; D70.9 Neutropenia, unspecified; I10 Essential (primary) hypertension
CPT/HCPCS: 36415; 80053; 80061; 84439; 84443; 85025

== ENCOUNTER → 2025-04-06 13:30 | Outpatient (CLI) | payer OTHER, SELFPAY ==
[2020-02-12 12:41] VITALS: BMI 27.3
[2025-04-06 14:18] LABS: Estimated Glomerular Filt Rate > 60 mL/min (>60)
[2025-04-06 14:45] LABS: Alanine Aminotransferase 25 IU/L (<50); Albumin 4.7 g/dL (3.5-5.0); Albumin Globulin Ratio 1.8 (1.0-2.8); Alkaline Phosphatase 50 U/L (38-126); Blood Urea Nitrogen 15 mg/dL (9-20); Calcium 9.3 mg/dL (8.4-10.2); Carbon Dioxide 28 mmol/L (22-32); Chloride 104 mmol/L (98-107); Cholesterol 229 mg/dL (140-199); Estimated Glomerular Filt Rate > 60 mL/min (>60); Globulin 2.6 g/dL (1.7-4.1); Glucose 100 mg/dL (70-99); HDL Cholesterol 95 mg/dL (40-60); HEMOLYSIS < 15 (0-50); Potassium 4.1 mmol/L (3.4-5.1); Sodium 140 mmol/L (137-145); Total Protein 7.3 g/dL (6.3-8.2); Triglycerides 78 mg/dL (35-150)
[2025-04-06 15:16] LABS: TSH w/ Reflex to FT4 0.29 uIU/mL (0.47-4.68)
[2025-04-06 16:36] LABS: Free T4, Direct Thyroxine 1.12 ng/dL (0.78-2.19)
== END ==
PROVIDERS: PCP Family Medicine; Referring Provider Otolaryngology; Visit Provider Otolaryngology
DX: R59.0 Localized enlarged lymph nodes (principal); E78.5 Hyperlipidemia, unspecified; E03.9 Hypothyroidism, unspecified; R22.32 Localized swelling, mass and lump, left upper limb
CPT/HCPCS: 36415; 80053; 80061; 82565; 84439; 84443; 99213

== ENCOUNTER → 2025-04-09 12:44 | Outpatient (CLI) | payer OTHER, SELFPAY ==
[2020-02-12 12:41] VITALS: BMI 27.3
--- NOTE | 2025-04-09 12:45 | DI.CT.S_ITS ---
PROCEDURE: CT SOFT TISSUE NECK W CON INDICATIONS: family hx of lymphoma TECHNIQUE: After the administration of intravenous contrast, 3.0 mm axial sections acquired from the sella to the aortic arch. Additional oblique axial 3.0 mm sections acquired through the pharynx. 3 mm thick coronal and sagittal reformats were generated. For radiation dose reduction, the following was used: automated exposure control. COMPARISON: [facility], , US SOFT TISSUE HEAD AND NECK, 06/28/2024, 7:35. FINDINGS: Image quality: Diagnostic Lymph nodes: No enlarged lymph nodes seen throughout the neck. Vessels: Visualized vasculature appears patent. Neck spaces: The oropharynx, nasopharynx, and pharynx demonstrate no mucosal lesions. The vocal cords, false vocal cords, pyriform sinuses, epiglottis, vallecula, and tongue base all appear normal. Extramucosal spaces appear unremarkable. Glands: The bilateral submandibular glands appear symmetric in size. No inflammatory changes identified. The parotid glands appear normal. Thyroid gland is unremarkable. Miscellaneous: Visualized brain and orbits appear normal. Lung apices appear clear. Superficial soft tissues appear normal. There is a 1.8 x 0.6 x 1.5 cm soft tissue density projecting superficial, lateral to the left masseter muscle (24/series 2). Bones: No suspicious bony lesions. Visualized sinuses and mastoids appear unremarkable. IMPRESSION: 1. CT neck without acute abnormalities. 2. A 1.8 x 0.6 x 1.5 cm soft tissue density in the subcutaneous soft tissues of the left face, superficial to the left masseter muscle which may represent a lymph node versus complex cyst versus other soft tissue lesion. Recommend correlation with clinical exam and possible targeted ultrasound to further characterize. 3. Otherwise, no cervical lymphadenopathy the. Unremarkable appearance of the submandibular and parotid glands. Dictated by: Chas Hill M.D. on 04/10/2025 at 13:08 Approved by: Chas Hill M.D. on 04/10/2025 at 13:32
== END ==
LOC: CT 12:45
PROVIDERS: PCP Family Medicine; Referring Provider Otolaryngology; Visit Provider Otolaryngology
DX: R59.0 Localized enlarged lymph nodes (principal); Z80.7 Family history of other malignant neoplasms of lymphoid, hematopoietic and related tissues
CPT/HCPCS: 70491; Q9967

== ENCOUNTER 2025-05-03 11:02 | Day surgery (SDC) | payer OTHER, SELFPAY ==
[2020-02-12 12:41] VITALS: BMI 27.3
[2025-04-15 09:37] VITALS: BMI 24.9
--- NOTE | 2025-05-03 | PATH_ITS ---
[facility] Accession Number: [id number] No. of containers..01 Tissue . 01 Material submitted: . shoulder - LEFT SHOULDER SEBACEOUS CYST . 01 Diagnosis: LEFT SHOULDER, EXCISION: Epidermal inclusion cyst. I 05/11/2025 1600 Local . 01 Electronically signed: . Vineet Matamoros MD, Pathologist NPI- [id number] . 01 Gross description: . Received in formalin labeled with two patient identifiers and left shoulder sebaceous cyst, is a 3.2 x 2.0 x 2.6 cm yellow to mackenzie-pink, focally disrupted soft tissue, focally surfaced by a 2.7 x 0.7 cm mackenzie-brown, elongated strip of skin. The resection margin is inked blue. Sectioning shows a 2.2 cm focally disrupted and partially collaped unilocular cyst filled with abundant brown, friable and dusky contents. The surrounding soft tissue is fibrotic and firm. [place] sections are submitted in cassettes A1-A2. ([id number]) /TAYLOR 05/07/20252031 Local . 01 Pathologist provided ICD-10: L72.0 . 01 CPT . 211268 Specimen Comment: A courtesy copy of this report has been sent to [facility] Performed at: [address] [facility], [place], [place] [id number] MD Juan Merchant MD Phone: [phone]
--- NOTE | 2025-05-03 06:10 | PM.PREOP ---
Pre-operative Note Interval Note History & Physical reviewed/Exam performed by Physician: Yes Changes to H&P: No ASA Class (for procedural sedation): I
[2025-05-03 11:22] VITALS: BP 131/81; PULSE 67; RESP 16; TEMP 36.8; O2SAT 100
[2025-05-03] MEDS: LACTATED RINGERS 1,000 ML 42 ML IV (11:39)
--- NOTE | 2025-05-03 12:33 | SUR.OPER ---
Lateral on a lawrence bag, head on pillow, gel axillary roll in place, bottom leg bent with gel pad under knee to foot, upper leg straight and supported with pillows. Upper arm supported by pillows and secured over bottom arm to padded arm board. Safety belt at hip, tape over blanket lower legs.
[2025-05-03 12:55] VITALS: BP 106/57; PULSE 77; RESP 14; TEMP 36.5; O2SAT 100
--- NOTE | 2025-05-03 12:58 | PM.OP.1 ---
Operative Date/Time/Diagnoses Date of procedure: 05/03/25 Time of procedure: 12:58 Pre-op diagnosis: Painful mass, left scapular region Post-op diagnosis: same Procedure & Clinicians Procedure: Excision 4.1cm mass, left scapular region Same procedure(s) as scheduled: Yes Indications: 44yo M, painful mass on left scapular region Surgeon: Jamison Sanchez Assisted?: No Anesthesia Type: MAC +/- Operative Notes Findings: Mass clinically consistent with epidermal inclusion cyst, 4.1cm Closure Type: primary Specimen(s): other (mass) Applied: none Estimated Blood Loss (mL): 5 Blood products transfused: none Procedure in detail: After informed consent and satisfactory sedation, the left scapular region was prepped and draped in the usual sterile manner. The patient was positioned carefully to minimize the risk for injury. The patient received appropriate DVT prophylaxis. No antibiotics indicated. Surgical time-out was performed with all team members in agreement. The site was marked in the preoperative holding area. The skin and subcutaneous tissues were infiltrated with 0.5% Marcaine with epinephrine. A total of 30 cc was used. The skin incision was made in an elliptical manner incorporating the skin pit. This was continued through the skin and subcutaneous tissues. There was a pearly white capsule around the mass. The subcutaneous plane was dissected with cautery down to the fascia and this was passed off the field for permanent section. The pearly white capsule contained sebum material. There were no additional palpable masses appreciated. Hemostasis was achieved with cautery. The space was reapproximated using 3-0 Vicryl interrupted incorporating the subcutaneous tissue and the fascia. The skin incision was closed using 4-0 Monocryl in a subcuticular manner. Dermabond glue was applied as a final dressing. The estimated blood loss was minimal. The instrument, sponge and needle counts were all correct x2. The patient tolerated the procedure well and was transported to the recovery area in stable condition. Complications: none Post-operative Condition: stable Disposition: PACU Plan for aftercare: PACU then home
[2025-05-03 12:59] VITALS: BP 112/60; PULSE 78; RESP 14; TEMP 36.6; O2SAT 99
[2025-05-03 13:09] VITALS: BP 118/70; PULSE 71; RESP 16; TEMP 36.4; O2SAT 99
== END 2025-05-03 13:26 | disposition home or self-care (01) ==
PROVIDERS: PCP Family Medicine; Referring Provider Surgery; Visit Provider Surgery
DX: L72.0 Epidermal cyst (principal); I10 Essential (primary) hypertension; I69.811 Memory deficit following other cerebrovascular disease; F17.200 Nicotine dependence, unspecified, uncomplicated
CPT/HCPCS: J2704; J7120